=== PATIENT | male | born 1940 | race African-American/Black ===

== ENCOUNTER 2019-09-03 16:38 | Inpatient (IN) | payer MEDICARE ==
[2019-09-03] MEDS ORDERED: Ketorolac Tromethamine 30 MG/ML VIAL ONE (17:01)
--- NOTE | 2019-09-03 17:03 | RAD ---
CHEST ONE VIEW: 09/03/19 HISTORY: Shortness of breath. COMPARISON: Radiograph 2016. FINDINGS: There is abnormal opacity on the superior segment right lower lobe. Small effusions. No pneumothorax. The cardiac silhouette is mildly enlarged. Mild calcifications transverse aorta. IMPRESSION: Findings concerning for right lower lobe pneumonia. POS: HOME
[2019-09-03 17:22] LABS: Hemoglobin 8.8 g/dL (14.0-18.0); Mean Corpuscular HGB CONC 33.8 g/dL (32.0-36.0); Mean Corpuscular Hemoglobin 31.3 pg (27.0-31.0); Mean Corpuscular Volume 92.4 fL (78.0-98.0); Mean Platelet Volume 9.7 fL (7.4-10.4); Platelet Count 147 thou/uL (130-400); RBC Distribution Width 15.6 % (11.5-14.5); Red Blood Cell (RBC) Count 2.81 mill/uL (4.70-6.10); White Blood Cell (WBC) Count 19.2 thou/uL (4.8-10.8)
[2019-09-03] MEDS ORDERED: methylPREDNISolone Sod Succ/PF 125 MG/2 ML VIAL ONE (17:29)
[2019-09-03 17:42] LABS: Phosphorus 3.2 mg/dL (2.3-4.7)
[2019-09-03 17:43] LABS: Anisocytosis SLIGHT = 6-15 cells (100X) (0-5/hpf); Band 12 % (5-11); Elliptocytes SLIGHT = 2-5 cells (100X) (0-1/hpf); Lymphocytes 3 % (21-51); MDiff Complete? YES; Monocytes 3 % (0-10); Neutrophil 81 % (42-75); Ovalocytes SLIGHT = 2-5 cells (100X) (0-1/hpf); Platelet Morphology Comment Appears Adequate; Poikilocytosis SLIGHT = 6-15 cells (100X) (0-5/hpf); Polychromasia SLIGHT = 2-3 cells (100X) (0-2/hpf); Reactive Lymphocytes 1 % (0-10); Schistocytes SLIGHT = 2-5 cells (100X) (0-1/hpf)
[2019-09-03 17:45] LABS: ALT (SGPT) 11 U/L (8-55); AST (SGOT) 18 U/L (5-34); Albumin 3.8 g/dL (3.4-4.8); Alkaline Phosphatase 71 U/L (40-110); Anion Gap 17 mmol/L (10-20); BUN (Urea Nitrogen) 20 mg/dL (8.4-25.7); Calc. Creatinine Clearance 0 mL/min (70-130); Calcium 9.4 mg/dL (7.8-10.44); Carbon Dioxide 28 mmol/L (23-31); Chloride 97 mmol/L (98-107); Estimated GFR-MDRD 13; Globulin 3.5 g/dL (2.4-3.5); Glucose 94 mg/dL (83-110); Magnesium 1.7 mg/dL (1.6-2.6); Potassium 3.8 mmol/L (3.5-5.1); Protein, Total 7.3 g/dL (5.8-8.1); Sodium 138 mmol/L (136-145)
[2019-09-03] MEDS ORDERED: Acetaminophen 325 MG TAB PO PRN ×2 (19:13→20:36)
[2019-09-03] MEDS ORDERED: Sodium Chloride 0.9% 1,000 ML IV SCH (19:15)
[2019-09-03] MEDS ORDERED: hydrALAZINE 20 MG/ML VIAL SLOW IVP PRN (19:19)
[2019-09-03 19:33] LABS: CKMB 4.2 ng/mL (0-6.6)
--- NOTE | 2019-09-03 19:56 | HP ---
CHIEF COMPLAINT: Coughing and weak. HISTORY OF PRESENT ILLNESS: This is a 78-year-old male with history of hypertension, gout, dyslipidemia; end-stage renal disease, on hemodialysis Thursday, , Thursday with Dr. Webster, who presents to the emergency room in [place] with a complaint of coughing and feeling weak. History is obtained from both the patient and his . They report the coughing has been productive, onset 4 days ago, worse today and occasionally associated with posttussive emesis. The patient was at his usual dialysis session, and following it, felt weak and coughing was worse. Because of that, they presented to the emergency room in [place] and was found to have a fever. At evaluation there, he also was found to have a left lower lobe pneumonia, sepsis, and transferred to this facility for further care. The patient denies any chest pain or difficulty breathing. Denies any nausea or vomiting aside from the posttussive emesis or abdominal pain. He denies any prior history of pneumonia or any sick contacts. There are also no known precipitants or relieving factors. In the emergency room in [place] by review of documentation, the patient received Tylenol, lactated Ringer's 500 mL, cefepime 2 g at 14:50, azithromycin 500 mg IV at 14:53, vancomycin 1.5 g at 15:35 and transferred here. Here by report to the emergency room doctor, the patient was wheezing and chest was tight and he received Solu-Medrol 125 mg IV, Toradol 15 mg IV, DuoNeb, and hospitalist called for admission. ALLERGIES: NO KNOWN DRUG ALLERGIES. CURRENT MEDICATIONS: Reconciled with the bottles: 1. Hydralazine 100 mg t.i.d. 2. Renal vitamin once daily. I called [facility] in [place], as the patient and his think there are other medications that they do not remember. In discussion with the pharmacist - his only other prescription is for minoxidil 2.5 mg two tablets at bedtime, which was last filled in March. They have no other prescriptions on file. PAST MEDICAL HISTORY: 1. Hypertension. 2. Dyslipidemia. 3. End-stage renal disease, on hemodialysis Thursday, , Thursday with Dr. Webster. 4. Gout. PAST SURGICAL HISTORY: 1. Some type of ulcer history. 2. Dialysis access in his left upper extremity. 3. Hand surgery. PAST SOCIAL HISTORY: The patient uses of tobacco, a few cigarettes every other day, started at age 24, had quit for 10-year period. He denies alcohol, he is and his is his surrogate decision maker and he is a full code. FAMILY HISTORY: Negative for lung disease. REVIEW OF SYSTEMS: Negative for chest pain, nausea, abdominal pain, headache, or diarrhea. All remaining review of systems are reviewed and negative. PHYSICAL EXAMINATION: VITAL SIGNS: Blood pressure 194/100, pulse 123, respirations 15, temp 100.2. Saturation is 93% on room air. GENERAL: He is awake, alert, responsive, answering questions and not in apparent distress. Tympanic membranes are intact. Oral mucosa is pink and appears dry, the patient is some teeth. NECK: Supple, nontender. LYMPHATICS: No palpable cervical or supraclavicular lymphadenopathy. LUNGS: Decreased lung sounds at the bases. No audible wheezing or rhonchi. HEART: Normal S1 and S2. Regular rate and rhythm. No significant murmur. ABDOMEN: Soft. Present bowel sounds. Nontender. Nondistended. EXTREMITIES: No pitting edema. SKIN: No visible rashes. NEUROLOGICAL: No focal deficits. VASCULAR: 2+ dorsalis pedis pulses. PSYCH: Appears euthymic. LABORATORY DATA: Reviewed from here. CBC; 19.2, 8.8, 26.0, 147 with 81% neutrophils, 12% bands, 3% lymphocytes. Renal panel; 138, 3.8, 97, 28, 25.18, 94. LFTs are negative. Troponin 0.220. EKGs personally reviewed, normal axis, tachycardic at 123, some T-wave inversion in V5, V6. No ST elevation. Chest x-ray is personally reviewed. It shows a right lower lobe pneumonia with small effusions. Report from [place] on the chest x-ray shows left lower lobe pneumonia. Images were not reviewed. IMPRESSION: 1. Sepsis in a high-risk patient secondary to pneumonia. 2. End-stage renal disease, on hemodialysis. 3. Wheezing and chest tightness with long history of tobacco use. 4. Hypertension, uncontrolled. 5. Dyslipidemia by report. 6. Gout. 7. Tobacco use. PLAN: 1. Admission to the hospital. 2. We will continue broad-spectrum antibiotics with cefepime, azithromycin, and vancomycin that were started in [place] with renal dosing. Rather than ordering additional vancomycin, we will request Pharmacy to dose with the information that when the vancomycin was received in [place]. 3. We will continue steroids with prednisone in the morning, DuoNeb scheduled every 4 hours. 4. Nephrology consultation with Dr. Webster to arrange hemodialysis. 5. Due to the sepsis as well as the patient appears dehydrated, we will order 50 mL/hour of saline to run over the next 10 hours. 6. For indeterminant troponin, will trend and monitor on telemetry. 7. Continue the hydralazine with hold parameters. We will also order IV hydralazine for significantly elevated blood pressures. 8. Renal diet. 9. We will request sputum culture as well as perform urine strep and Legionella testing (if he produces enough urine to perform). 10. DVT prophylaxis with heparin. 11. GI prophylaxis not indicated. The patient will be written for a diet. 12. Code status is full. Surrogate decision maker is the patient's . The patient is at high risk given age comorbidities and current presentation. Reviewed the plan of care with patient and his who demonstrate understanding and agree. No questions or further needs at end of evaluation. Job ID: [id number] [facility]
[2019-09-03] MEDS ORDERED: Ondansetron ODT 4 MG TAB SL PRN (20:36)
[2019-09-03] MEDS ORDERED: Ondansetron PF 4 MG/2 ML Vial IVP PRN (20:36)
[2019-09-03 21:14] VITALS: BMI 23.1
[2019-09-03] MEDS: hydrALAZINE 25 MG TAB PO SCH (21:31)
[2019-09-03] MEDS: Heparin 5,000 UNITS/ML VIAL SC SCH (21:32)
[2019-09-03 21:36] LABS: Troponin I 0.261 ng/mL (< 0.028)
[2019-09-03 23:34] LABS: Legionella Urinary Ag Negative (Negative); Strep pneumo Urine Ag NEGATIVE (NEGATIVE)
[2019-09-04 01:14] LABS: Troponin I 0.223 ng/mL (< 0.028)
[2019-09-04 04:58] LABS: Calcium 9.1 mg/dL (7.8-10.44); Chloride 98 mmol/L (98-107); Glucose 163 mg/dL (83-110); Potassium 3.8 mmol/L (3.5-5.1); Sodium 139 mmol/L (136-145)
[2019-09-04 04:59] LABS: Anion Gap 18 mmol/L (10-20); BUN (Urea Nitrogen) 33 mg/dL (8.4-25.7); Band 10 % (5-11); Calc. Creatinine Clearance 9 mL/min (70-130); Carbon Dioxide 27 mmol/L (23-31); Elliptocytes MODERATE= 6-15 cells (100X) (0-1/hpf); Estimated GFR-MDRD 11; Hemoglobin 8.2 g/dL (14.0-18.0); Lymphocytes 4 % (21-51); MDiff Complete? YES; Mean Corpuscular HGB CONC 32.4 g/dL (32.0-36.0); Mean Corpuscular Hemoglobin 30.4 pg (27.0-31.0); Mean Platelet Volume 10.9 fL (7.4-10.4); Neutrophil 86 % (42-75); Platelet Count 130 thou/uL (130-400); Platelet Morphology Comment Appears Decreased; RBC Distribution Width 15.6 % (11.5-14.5); Red Blood Cell (RBC) Count 2.71 mill/uL (4.70-6.10); White Blood Cell (WBC) Count 17.7 thou/uL (4.8-10.8)
[2019-09-04] MEDS: hydrALAZINE 25 MG TAB PO SCH ×3 (08:10→22:41)
[2019-09-04] MEDS: Heparin 5,000 UNITS/ML VIAL SC SCH (08:10)
[2019-09-04] MEDS: predniSONE 20 MG TAB PO SCH (08:10)
[2019-09-04] MEDS ORDERED: Vancomycin HCl 750 MG in Sodium Chloride 0.9% 250 ML 250 ML IVPB SCH (09:00)
[2019-09-04] MEDS ORDERED: Vancomycin HCl 1 GM in Premix Bag 1 BAG IVPB SCH (09:00)
[2019-09-04] MEDS ORDERED: Vancomycin HCl 250 MG in Sodium Chloride 0.9% 100 ML IVPB SCH (09:00)
[2019-09-04] MEDS ORDERED: HOLD VANCOMYCIN FOR LEVEL >20 FS SCH (09:00)
[2019-09-04] MEDS ORDERED: Carvedilol 3.125 MG TAB PO SCH (09:30)
--- NOTE | 2019-09-04 10:08 | PDOC.HOSPP ---
- Subjective Encounter Date: 09/04/19 (f/u sepsis) Encounter Time: 10:06 Subjective: Pt without any complaints this morning - reports he is feeling better. Denies any chest pain or difficulty breathing. Denies any n/v/abd pain - Objective Vital Signs & Weight: Vital Signs (12 hours) Temp Pulse Resp BP BP Pulse Ox 09/04/19 08:10 105 H 09/04/19 07:50 94 L 09/04/19 07:49 98.3 F 105 H 18 195/96 H 94 L 09/04/19 07:13 91 12 96 09/04/19 03:24 97.7 F 120 H 20 189/89 H 93 L 09/04/19 02:13 112 H 12 09/04/19 00:04 114 H 195/94 H 09/03/19 23:15 96 Weight Weight 147 lb 9.6 oz I&O: 09/03/19 09/04/19 09/05/19 06:59 06:59 06:59 Intake Total 400 Output Total 180 Balance 220 Result Diagrams: 09/04/19 03:54 09/04/19 08:02 EKG Reviewed by me: Yes (a flutter 70's -120's) Hospitalist ROS - Medication Medications: Active Medications Generic Name Dose Route Start Last Admin Trade Name Freq PRN Reason Stop Dose Admin Heparin Sodium (Porcine) 5,000 units 09/03/19 21:00 09/04/19 08:10 Heparin SC 5,000 units BID CHANCE Administration Hydralazine HCl 10 mg 09/03/19 19:19 09/04/19 00:04 Apresoline SLOW IVP 10 mg Q4H PRN Administration SBP Greater Than 180 Hydralazine HCl 100 mg 09/03/19 21:00 09/04/19 08:10 Apresoline PO 100 mg TID CHANCE Administration Prednisone 40 mg 09/04/19 08:00 09/04/19 08:10 Prednisone PO 40 mg QAM-WM CHANCE Administration Sodium Chloride 10 ml 09/03/19 21:00 09/04/19 08:14 Flush - Normal Saline IVF 10 ml Q12HR CHANCE Administration - Exam General Appearance: NAD Heart: RRR, no murmur Respiratory - other findings: good air movement, decreased breath sounds at bases Gastrointestinal: soft, non-tender, non-distended, normal bowel sounds Musculoskeletal: normal tone Psychiatric: normal affect, normal behavior Hosp A/P (1) Sepsis Code(s): A41.9 - SEPSIS, UNSPECIFIED ORGANISM Status: Acute Qualifiers: Sepsis type: sepsis due to unspecified organism Severe sepsis shock status : without septic shock (2) Pneumonia Code(s): J18.9 - PNEUMONIA, UNSPECIFIED ORGANISM Status: Acute Qualifiers: Pneumonia type: due to unspecified organism Laterality: bilateral Lung location: lower lobe of lung Qualified Code(s): J18.9 - Pneumonia, unspecified organism (3) Atrial flutter Code(s): I48.92 - UNSPECIFIED ATRIAL FLUTTER Status: Acute Qualifiers: Atrial flutter type: unspecified Qualified Code(s): I48.92 - Unspecified atrial flutter (4) ESRD (end stage renal disease) on dialysis Code(s): N18.6 - END STAGE RENAL DISEASE; Z99.2 - DEPENDENCE ON RENAL DIALYSIS Status: Chronic (5) Dyslipidemia Code(s): E78.5 - HYPERLIPIDEMIA, UNSPECIFIED Status: Chronic (6) Tobacco abuse Code(s): Z72.0 - TOBACCO USE Status: Chronic (7) Hypertension Code(s): I10 - ESSENTIAL (PRIMARY) HYPERTENSION Status: Chronic Qualifiers: Hypertension type: essential hypertension Qualified Code(s): I10 - Essential (primary) hypertension (8) Anemia Code(s): D64.9 - ANEMIA, UNSPECIFIED Status: Chronic Qualifiers: Anemia type: due to chronic kidney disease - Plan Pneumonia - given dialysis patient, on broad spectrum abx with Cefepime, Azithro , Vanc - per pharmacy protocol. Continue all 3 - pt not noticing a change with nebs - change to prn - received steroids in ER - good air movement today, will continue prednisone with plan for a few days - presume cultures have been drawn in [place] - will place communication order/request for nursing staff to contact them for update A Flutter - new dx - echo - cards consult - start low dose carvedilol - troponin indeterminant - continue tele ESRD on HD with uncontrolled HTN - consult to Dr. Webster = who will also adjust bp meds. - continue pt's home hydralazine TID and carvedilol added Dyslipidemia - not on meds Tobacco abuse - adolescent counselor Anemia -chronic/stable dvt prophy - heparin gi prophy - not indicated code status full reviewed plan of care with patient/, no questions or further needs at end of eval.
[2019-09-04] MEDS ORDERED: Amlodipine 10 MG TAB PO SCH (11:15)
[2019-09-04] MEDS: Sevelamer Carbonate 800 MG TAB PO SCH ×2 (11:51→17:46)
[2019-09-04 15:01] LABS: Magnesium 2.1 mg/dL (1.6-2.6); Potassium 3.8 mmol/L (3.5-5.1)
[2019-09-04] MEDS: Cefepime 1 GM in Sodium Chloride 0.9% 100 ML IVPB SCH (15:32)
[2019-09-04] MEDS: Azithromycin 250 MG TAB PO SCH (15:32)
[2019-09-04] MEDS ORDERED: Heparin 25,000 units/D5W 500 ML IVPB SCH (16:00)
--- NOTE | 2019-09-04 16:10 | CON ---
DATE OF CONSULTATION: 09/04/2019 REASON FOR CONSULTATION: Atrial flutter. HISTORY OF PRESENT ILLNESS: Mr. Dowd is a pleasant 78-year-old gentleman, who comes to the hospital for increased shortness of breath. He has end-stage renal disease and is on hemodialysis Thursday, Thursday, Thursday. He comes in with 4 days of productive cough with posttussive emesis. He was admitted and found to have pneumonia. He was placed on telemetry and was found to have an irregular heart rate, thought to be in atrial fibrillation. Cardiology is being consulted for this. PAST MEDICAL HISTORY: 1. Hypertension. 2. Hyperlipidemia. 3. End-stage renal disease, on hemodialysis Thursday, , Thursday with Dr. Webster. 4. Gout. PAST SURGICAL HISTORY: 1. Dialysis access, left upper extremity. 2. Hand surgery. SOCIAL HISTORY: A few cigarettes every other day. No alcohol. No drugs. FAMILY HISTORY: Noncontributory. OUTPATIENT MEDICATIONS: 1. Hydralazine 100 mg t.i.d. 2. Renal vitamins a day. 3. Minoxidil 2.5 mg. ALLERGIES: NO KNOWN DRUG ALLERGIES. REVIEW OF SYSTEMS: A 12-point review of systems was done and was all negative unless stated in the history of present illness. PHYSICAL EXAMINATION: VITAL SIGNS: Temperature 98.8, pulse 107, respiratory rate 18, sat 94% on room air. Blood pressure 174/96. GENERAL: Awake, alert oriented x3 in no distress. HEENT: Normocephalic atraumatic. NECK: Supple. LUNGS: Have mild crackles at the right base. CARDIOVASCULAR: S1, S2. Irregularly irregular. HEART: Rate in the 100s to 120s. Grade 3/6 systolic murmur at the right upper sternal border. ABDOMEN: Soft. Positive bowel sounds. EXTREMITIES: No edema. SKIN: Warm and dry. LABORATORY DATA: Laboratory work was reviewed. White count of 19, down to 17, hemoglobin of 8.8, hematocrit of 26, platelet count of a 147. Chemistries with a BUN of , creatinine 6.2, GFR of 11, glucose of 163, otherwise unremarkable. Troponin was 0.22, 0.26 and 0.22. CK-MB of 4.2. The urinary antigens both strep and Legionella were negative. Chest x-ray shows right lower lobe pneumonia. EKG appears to be atrial flutter with variable AV block. ASSESSMENT AND PLAN: 1. Atrial flutter with variable atrioventricular block. 2. Right lower lobe pneumonia. 3. End-stage renal disease. 4. Hypertension. 5. Noncompliance. PLAN: 1. I spoke with Mr. Dowd about either medication, doing a defibrillator shock or just going ahead and doing an ablation for this. At this time, he is undecided. He would like to have more information. We will plan on calling Electrophysiology to see if he is even a candidate for any invasive interventions. 2. Given his age and his history of high blood pressure, his CHADS-VASc score would be 3. We would recommend full anticoagulation. We will start a heparin drip as he has end-stage renal disease. Thank you for letting us to participate in the care of the patient. Job ID: [id number]
[2019-09-04 16:22] LABS: Hemoglobin 8.1 g/dL (14.0-18.0); Platelet Count 137 thou/uL (130-400)
[2019-09-04] MEDS: Heparin 10,000 UNITS/ 10 ML VIAL SLOW IVP SCH ×2 (16:34→23:13)
[2019-09-04] MEDS: Carvedilol 3.125 MG TAB PO SCH (17:46)
[2019-09-04] MEDS: Minoxidil 2.5 MG TAB PO SCH (21:30)
[2019-09-05] MEDS ORDERED: Acetaminophen/Codeine Oral Solution PO PRN ×2 (01:03→01:05)
[2019-09-05 06:01] LABS: Anion Gap 19 mmol/L (10-20); BUN (Urea Nitrogen) 56 mg/dL (8.4-25.7); Calc. Creatinine Clearance 7 mL/min (70-130); Calcium 9.9 mg/dL (7.8-10.44); Carbon Dioxide 28 mmol/L (23-31); Chloride 94 mmol/L (98-107); Estimated GFR-MDRD 8; Glucose 91 mg/dL (83-110); Potassium 3.8 mmol/L (3.5-5.1); Sodium 137 mmol/L (136-145)
[2019-09-05 06:05] LABS: Band 1 % (5-11); Hemoglobin 8.4 g/dL (14.0-18.0); Hypochromia SLIGHT = 6-15 cells (100X) (0-5/hpf); Lymphocytes 10 % (21-51); MDiff Complete? YES; Mean Corpuscular HGB CONC 30.8 g/dL (32.0-36.0); Mean Corpuscular Volume 93.9 fL (78.0-98.0); Mean Platelet Volume 10.4 fL (7.4-10.4); Monocytes 3 % (0-10); Neutrophil 86 % (42-75); Platelet Count 157 thou/uL (130-400); Platelet Morphology Comment Appears Adequate; RBC Distribution Width 15.4 % (11.5-14.5); Red Blood Cell (RBC) Count 2.91 mill/uL (4.70-6.10); White Blood Cell (WBC) Count 19.4 thou/uL (4.8-10.8)
[2019-09-05] MEDS: Heparin 10,000 UNITS/ 10 ML VIAL SLOW IVP SCH ×2 (06:05→14:13)
[2019-09-05] MEDS ORDERED: Epoetin (ESRD) 20,000 UNITS/ML SC SCH (06:30)
--- NOTE | 2019-09-05 07:00 | PRG ---
DATE OF SERVICE: 09/05/2019 SERVICE: Renal Medicine. SUBJECTIVE: Mr. Dowd is 78-year-old black male with ESRD and was admitted for a presumed pneumonia. He has been started on IV antibiotics. In addition, he was noted to be in flutter. He was seen by Cardiology, Dr. Clark, yesterday. Recommendation for anticoagulation has been made. This morning, he voices no new complaints. He denies any chest pain or shortness of breath. OBJECTIVE: VITAL SIGNS: Blood pressure 172/95, heart rate ranging from 108 to 120, respiratory rate 20, pulse ox 93% on room air. GENERAL: Awake, supine, comfortable, not in overt distress. SKIN: Adequate turgor. HEENT: He has a slightly pale conjunctivae. Anicteric sclerae. NECK: No neck mass. No carotid bruits. No JVD. CHEST: No deformities. LUNGS: Clear breath sounds. No wheezing. No crackles. HEART: Irregular. No murmur. No gallops. No rubs. ABDOMEN: Globular, soft, nontender. No masses. EXTREMITIES: No edema. No deformities. MEDICATIONS: Medications of September 05, 2019, were reviewed. IMAGING STUDIES: Cardiac echo showed an EF of 50% to 55%-moderately enlarged right ventricle cavity. LABORATORY DATA: Laboratories of September 05, 2019; white count 19.4, hemoglobin 8.4. Sodium 137, potassium 3.8, chloride 94, carbon dioxide 28, BUN 56, creatinine 8.06, glucose 91, calcium 9.9, magnesium 2.1. Troponin I is 0.223. ASSESSMENT AND PLAN: 1. End-stage renal disease, stable. No indication for any emergent hemodialysis. We will continue Thursday, , and Thursday dialysis regimen. 2. Atrial flutter-Cardiology has seen and evaluated this patient. Possible cardioversion is being considered with this patient. He has been started on anticoagulation. 3. Anemia. Start Epogen 7500 units subcu q.week-ferrous sulfate 325 mg p.o. b.i.d. 4. Pneumonia, on IV antibiotics. Job ID: [id number]
[2019-09-05] MEDS ORDERED: EPOETIN ALFA-EPBX (ESRD) 4,000 UNIT/ML VIAL SC SCH (09:00)
[2019-09-05] MEDS: predniSONE 20 MG TAB PO SCH (09:03)
[2019-09-05] MEDS: hydrALAZINE 25 MG TAB PO SCH ×3 (09:03→20:29)
[2019-09-05] MEDS: Carvedilol 3.125 MG TAB PO SCH ×2 (09:04→20:28)
[2019-09-05] MEDS: Amlodipine 10 MG TAB PO SCH (09:04)
[2019-09-05] MEDS: Sevelamer Carbonate 800 MG TAB PO SCH ×3 (09:04→20:29)
[2019-09-05] MEDS: Ferrous Sulfate 325 MG TAB PO SCH ×2 (09:04→20:28)
--- NOTE | 2019-09-05 09:42 | CON ---
DATE OF CONSULTATION: HISTORY OF PRESENT ILLNESS: Mr. Dowd is a 78-year-old black male with ESRD, who was admitted for a cough and generalized weakness. He denied any associated fever with this, but he did have a productive cough. He was evaluated at the [facility], was found to have a pneumonia. He is now admitted here for further management. We are being consulted for management of his ESRD. He did receive dialysis yesterday. REVIEW OF SYSTEMS: Positive for cough. Denies any fever. No headache. No diplopia. Appetite is decreased. Energy level is decreased. No nausea. No vomiting. No hematochezia. No melena. No hematemesis. No abdominal pain. No diplopia. No syncopal episode. MEDICATIONS: The patient is currently on; 1. Azithromycin 500 mg q.24 hours. 2. Carvedilol 3.125 mg b.i.d. 3. Cefepime 1 g IV daily. 4. Hydralazine 100 mg p.o. t.i.d. 5. DuoNeb q.6 p.r.n. 6. Zofran p.r.n. 7. Prednisone 40 mg q.a.m. 8. Status post vancomycin. PAST MEDICAL HISTORY: 1. 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 2. Longstanding history of hypertension, status post GI bleed. PAST SURGICAL HISTORY: 1. Status post AV fistula placement. 2. Status post femoral dialysis catheter placement. 3. Status post cuffed hemodialysis catheter placement. 4. Status post exploratory laparotomy for GI bleed secondary to bleeding of peptic ulcer. 5. Status post upper GI endoscopy. SOCIAL HISTORY: The patient is , 3 children. Smoked for 40 years, 1 pack per day - currently not smoking. He is a retired trooper. Status post multiple blood transfusion. No IV drug abuse. Sedentary lifestyle. ALLERGIES: NONE. TRAUMA: None. IMMUNIZATIONS: Up-to-date. HOSPITALIZATIONS: Please see past medical history. FAMILY HISTORY: Positive family history of ESRD, one brother was on dialysis. PHYSICAL EXAMINATION: VITAL SIGNS: Blood pressure is noted at 195/96, heart rate 105, respiratory rate 18, temperature 98.3, and pulse ox 94%. GENERAL: Awake, alert, comfortable, not in overt distress. SKIN: Adequate turgor. HEENT: Slightly pale conjunctivae. Anicteric sclerae. NECK: No neck mass. No carotid bruits. No JVD. CHEST: No deformities. LUNGS: Decreased breath sounds. HEART: Normal sinus rhythm. No murmurs. No gallops. No rubs. ABDOMEN: Globular, soft, and nontender. No masses. EXTREMITIES: No edema. No deformities. NEUROLOGICAL: Moving all extremities. No tremors. No asterixis. No ataxia. LABORATORY DATA: Laboratories of September 04, 2019; white count 17.7, hemoglobin 8.2. Sodium 139, potassium 3.8, chloride 98, carbon dioxide 27, BUN 33, creatinine 6.24, and calcium 9.1. Troponin I 0.223. IMAGING DATA: On September 03, 2019; chest x-ray shows right lower lobe pneumonia. ASSESSMENT AND PLAN: 1. Pneumonia on IV antibiotics. Continue supportive care. 2. End-stage renal disease, stable. No indication for any emergent hemodialysis. He is tolerating his said dialysis regimen. I reviewed his last Kt/V and is well dialyzed with the current dialysis regimen. 3. Hyperphosphatemia. Start Renvela 800 mg one tablet t.i.d. with meals. 4. Labile hypertension. Case discussed with the nursing staff. Resume back amlodipine 10 mg tablet once a day and we will add minoxidil 5 mg tablet at bedtime. 5. Atrial flutter - Cardiology consult has been done. We agree with current management. Job ID: [id number]
--- NOTE | 2019-09-05 09:56 | PDOC.HOSPP ---
- Subjective Encounter Date: 09/05/19 Encounter Time: 12:10 Subjective: Patient feeling ok this AM. Feeling palpitations on and off. No SOB currently. Mild cough with minimal clear sputum. No other symptoms. Spoke with Dr. Madrigal already and planning on ablation. - Objective Vital Signs & Weight: Vital Signs (12 hours) Temp Pulse Resp BP Pulse Ox 09/05/19 09:04 123 H 09/05/19 09:03 123 H 09/05/19 07:32 98.2 F 123 H 18 166/99 H 94 L 09/05/19 00:55 98.8 F 120 H 20 172/95 H 93 L 09/04/19 22:41 108 H Weight Weight 147 lb 9.6 oz I&O: 09/04/19 09/05/19 09/06/19 06:59 06:59 06:59 Intake Total 400 920 Output Total 180 Balance 220 920 Result Diagrams: 09/05/19 05:34 09/05/19 05:34 Hospitalist ROS - Review of Systems Constitutional: denies: fever, chills Respiratory: reports: cough. denies: shortness of breath Cardiovascular: reports: palpitations. denies: chest pain Gastrointestinal: denies: nausea, vomiting, abdominal pain - Medication Medications: Active Medications Generic Name Dose Route Start Last Admin Trade Name Freq PRN Reason Stop Dose Admin Amlodipine Besylate 10 mg 09/05/19 09:00 09/05/19 09:04 Norvasc PO 10 mg DAILY CHANCE Administration Azithromycin 500 mg 09/04/19 15:00 09/04/19 15:32 Zithromax PO 500 mg Q24HR CHANCE Administration Carvedilol 3.125 mg 09/04/19 17:00 09/05/19 09:04 Coreg PO 3.125 mg BID-WM CHANCE Administration Ferrous Sulfate 325 mg 09/05/19 08:00 09/05/19 09:04 Feosol PO 325 mg BID-WM CHANCE Administration Heparin Sodium (Porcine) 0 units 09/04/19 16:00 09/05/19 06:05 Heparin 1,000 Units/Ml (10 Ml) SLOW IVP 2,010 unit ASDIR CHANCE Administration Protocol Hydralazine HCl 10 mg 09/03/19 19:19 09/04/19 00:04 Apresoline SLOW IVP 10 mg Q4H PRN Administration SBP Greater Than 180 Hydralazine HCl 100 mg 09/03/19 21:00 09/05/19 09:03 Apresoline PO 100 mg TID CHANCE Administration Cefepime HCl 1 gm/ Sodium 100 mls @ 200 mls/hr 09/04/19 15:00 09/04/19 15:32 Chloride IVPB 100 mls Q24HR CHANCE Administration Heparin Sodium/Dextrose 500 mls @ 0 mls/hr 09/04/19 16:00 09/04/19 16:36 Heparin 25,000 Units/D5w 500 Ml IVPB 500 mls INF CHANCE Administration Protocol Per Protocol Minoxidil 5 mg 09/04/19 21:00 09/04/19 21:30 Minoxidil PO 5 mg HS CHANCE Administration Prednisone 40 mg 09/04/19 08:00 09/05/19 09:03 Prednisone PO 40 mg QAM-WM CHANCE Administration Sevelamer Carbonate 800 mg 09/04/19 12:00 09/05/19 09:04 Renvela PO Not Given TID-WM CHANCE Sodium Chloride 10 ml 09/03/19 21:00 09/05/19 09:04 Flush - Normal Saline IVF Not Given Q12HR CHANCE - Exam General Appearance: NAD Heart: no murmur, no gallops, no rubs, irregular Heart - other findings: mild tachycardia Respiratory: CTAB, no wheezes, no rales, no ronchi Gastrointestinal: soft, non-tender, non-distended, normal bowel sounds Extremities: no edema Psychiatric: normal affect, normal behavior, A&O x 3 Hosp A/P (1) Pneumonia Code(s): J18.9 - PNEUMONIA, UNSPECIFIED ORGANISM Status: Acute Qualifiers: Pneumonia type: due to unspecified organism Laterality: bilateral Lung location: lower lobe of lung Qualified Code(s): J18.9 - Pneumonia, unspecified organism (2) Sepsis Code(s): A41.9 - SEPSIS, UNSPECIFIED ORGANISM Status: Acute Qualifiers: Sepsis type: sepsis due to unspecified organism Severe sepsis shock status : without septic shock (3) Atrial flutter Code(s): I48.92 - UNSPECIFIED ATRIAL FLUTTER Status: Acute Qualifiers: Atrial flutter type: unspecified Qualified Code(s): I48.92 - Unspecified atrial flutter (4) Dyslipidemia Code(s): E78.5 - HYPERLIPIDEMIA, UNSPECIFIED Status: Chronic (5) ESRD (end stage renal disease) on dialysis Code(s): N18.6 - END STAGE RENAL DISEASE; Z99.2 - DEPENDENCE ON RENAL DIALYSIS Status: Chronic (6) Tobacco abuse Code(s): Z72.0 - TOBACCO USE Status: Chronic (7) Anemia in chronic kidney disease Code(s): N18.9 - CHRONIC KIDNEY DISEASE, UNSPECIFIED; D63.1 - ANEMIA IN CHRONIC KIDNEY DISEASE Status: Chronic (8) Chronic diastolic heart failure Code(s): I50.32 - CHRONIC DIASTOLIC (CONGESTIVE) HEART FAILURE Status: Chronic (9) Hypertension Code(s): I10 - ESSENTIAL (PRIMARY) HYPERTENSION Status: Chronic Qualifiers: Hypertension type: essential hypertension Qualified Code(s): I10 - Essential (primary) hypertension - Plan continue antibiotics, PT/OT Pneumonia - given dialysis patient, on broad spectrum abx with Cefepime, Azithro , Vanc - per pharmacy protocol. Continue all 3 - pt not noticing a change with nebs - changed to prn - received steroids in ER - good air movement today, will continue prednisone with plan for 5 days - presume cultures have been drawn in [place] - will place communication order/request for nursing staff to contact them for update A Flutter - new dx - echo - cards consult- Eduardo saw over the weekend - low dose carvedilol - troponin indeterminant - CHADS 3- started on heparin drip - EP consult- Dr. Madrigal planning on ANTWAN and ablation ESRD on HD with uncontrolled HTN - consulted Dr. Webster. - continue pt's home hydralazine TID and carvedilol added Dyslipidemia - not on meds Tobacco abuse - behavioral school counselors Anemia -chronic/stable dvt prophy - heparin code status full
[2019-09-05] MEDS ORDERED: PROPOFOL 200 MG/20 ML VIAL ONE (13:35)
[2019-09-05] MEDS ORDERED: Lidocaine 1% PF 5 ML VIAL ONE (13:35)
--- NOTE | 2019-09-05 13:44 | CON ---
DATE OF CONSULTATION: 09/05/2019 HISTORY OF PRESENT ILLNESS: I am seeing Mr. Dowd at our [facility] as an electrophysiology it web development consultant regarding his atrial flutter. His problems are: 1. Newly found atrial flutter with 2:1 AV conduction, likely isthmus dependent typical morphology. 2. Preserved LVEF at 50% to 55%, moderate biatrial enlargement, mild MR, [id number] TR with moderate pulmonary hypertension, 70 mmHg on 2D echo on 09/04/2019. 3. End-stage renal disease, on hemodialysis Thursday, , Thursday, following with Dr. Webster. 4. Hypertension and hyperlipidemia. 5. History of gout. ALLERGIES: NONE NOTED. MEDICATIONS AT HOME: 1. Hydralazine. 2. Renal vitamins. 3. Minoxidil. SUBJECTIVE: Mr. Dowd is a 78-year-old man, who came to the hospital with increasing dyspnea and diagnosed with possible pneumonia. He received IV antibiotics and his respiratory symptoms markedly improved, but he remains in a rapid narrow complex rhythm, appears to be atrial flutter with 2:1 AV conduction. He is on IV diltiazem despite the heart rates are difficult to control this. At this point, he is reasonably comfortable at rest. He does not pass out. No chest pains. No angina. No fever, chills, or cough. No stroke-like symptoms are noted. He has no bleeding issues. Minor cough, now improving. REVIEW OF SYSTEMS: Rest of 12-point system otherwise unremarkable. PAST HISTORY: As above. PAST SURGICAL HISTORY: Significant for dialysis access shunt placement in the left upper arm, ulcer history, and hand surgery. SOCIAL HISTORY: The patient is a smoker, although a few cigarettes only a day since age 24, quit about 10 years. Denies EtOH or drug abuse. and his daughter was at the bedside. OBJECTIVE DATA: VITAL SIGNS: Blood pressure is 166/99, heart rate 123, respirations 18, and temperature 98.2 degrees Fahrenheit. GENERAL: This is an alert and oriented man, in no apparent distress. NECK: Supple. Jugular veins not distended. CHEST: Coarse without crackles. HEART: Sounds are regular to rate and rhythm. No murmur or gallop. Left upper arm with functional AV fistula with appropriate murmur audible. ABDOMEN: Benign. Bowel sounds are positive. EXTREMITIES: Lower extremities without edema, clubbing, or cyanosis. Pulses are adequate. NEUROLOGIC: The patient is nonfocal. MUSCULOSKELETAL: Without joint swelling or deformity. SKIN: Without rash. DATABASE: EKG is reviewed, revealing an atrial flutter likely typical isthmus dependent in morphology, mostly 2:1, occasionally 3:1 AV conduction. LABORATORY DATA: White cell count is 19.4, hemoglobin 8.4, platelet count is 157. PTT is 42. Sodium 137, potassium 3.8, BUN is 56, creatinine is 8.06. Troponin levels are 0.2, 0.26, 0.22 consecutively. ASSESSMENT AND PLAN: Mr. Dowd is a 78-year-old man with history of end-stage renal disease, preserved left ventricular ejection fraction, who was found to have sustained atrial flutter in the setting of pneumonia, atrial flutter with rapid AV conduction remained. He is on IV heparin since admission. We discussed the mechanism of atrial fibrillation and flutter. Detailed the differences in 2 and potential treatment options were also discussed with him, his , and his daughter, who is in medical field. They understand the treatment options, which should include continued rate control, though so far not successful. Antiarrhythmic agents, ANTWAN-guided cardioversion versus ablation. Eventually, we agreed to ablation with further discussion with the family. The risks and benefits of the procedure including esophageal perforation with ANTWAN, bleeding at the groin site or the pericardial space with the ablation, recurrence stroke and risk is discussed. They understand and considering to proceed with the procedure. I will keep him n.p.o. for now. Continue heparin. We will follow with you. Thank you again for allowing me to participate in the care of this patient. Job ID: [id number] MTDD
[2019-09-05] MEDS: Azithromycin 250 MG TAB PO SCH (15:41)
[2019-09-05] MEDS: Cefepime 1 GM in Sodium Chloride 0.9% 100 ML IVPB SCH (15:41)
[2019-09-05] MEDS ORDERED: Lidocaine 1% (PF) 30 ML VIAL ONE (17:04)
[2019-09-05] MEDS ORDERED: Heparin 10,000 UNITS/1 ML VIAL ONE (17:04)
[2019-09-05] MEDS ORDERED: Heparin (Artline) 500 ML ONE (17:04)
[2019-09-05] MEDS ORDERED: Fentanyl 100 MCG/2 ML VIAL ONE (17:34)
[2019-09-05] MEDS ORDERED: Propofol 1,000 MG/100 ML VIAL IV ONE (17:35)
[2019-09-05] MEDS ORDERED: DOPamine 400 MG/D5W 250 ML 250 ML ONE (18:31)
[2019-09-05] MEDS ORDERED: Ondansetron HCl/PF 4 MG/2 ML Vial IVP PRN (19:01)
[2019-09-05] MEDS: Minoxidil 2.5 MG TAB PO SCH (20:30)
--- NOTE | 2019-09-06 01:29 | OP ---
DATE OF PROCEDURE: 09/05/2019 PROCEDURES PERFORMED: Electrophysiology study and radiofrequency ablation. REASON FOR PROCEDURE: Mr. Dowd is a 78-year-old man with history of end-stage renal disease. He is presenting with upper respiratory tract infection, also malaise, fatigue, and marked sustained tachycardia, which appears to be isthmus dependent atrial flutter. ANTWAN prior to the procedure demonstrates no intracardiac clots. DESCRIPTION OF PROCEDURE: The patient received propofol and deep sedation by Anesthesia specialist. After adequate level of sedation achieved, the right femoral venous area was prepped, draped, anesthetized using subcutaneous lidocaine and under ultrasound guidance, two femoral vein sheaths were inserted via Seldinger technique. Through these, a ThermoCool SFST catheter advanced to the right atrium. 3D map of the right atrium, His bundle, CS positions were obtained. Also, a decapolar catheter was advanced to the right atrium and right ventricle. His bundle and CS position pace mapping recording was performed in each location including pacing the left atrium via the CS. The following findings were noted: Baseline rhythm was an atrial flutter with typical isthmus-dependent morphology. The CS activation was proximal to distal. Cycle length was 240 milliseconds. Overdrive pacing at the cavotricuspid isthmus entering the tachycardia and the post-pacing interval was equal to the baseline tachycardia cycle length of about 240 milliseconds. This proved the cavotricuspid isthmus dependent atrial flutter, therefore, we proceeded with a cavotricuspid isthmus ablation. Total of 7 lesions delivered over duration of 6 minutes and 36 seconds. 35 to 40 denson of energy was used. During the isthmus ablation, the atrial flutter terminated and additional flutter was noted, also deemed to be isthmus dependent with cycle length of about 320 milliseconds. Further ablation isthmus eliminated this flutter and inducibility as well. Following that, basic EP study was performed. Sinus node recovery time was 1048, corrected about 310 milliseconds. AV Wenckebach cycle length of 440 milliseconds. The HV interval was 49 milliseconds pre and post ablation. No re-inducible atrial flutter is seen. Dopamine was administered at this point. Isthmus dependency was rechecked and no evidence of inducible atrial flutter or fibrillation was seen at the end of the case. CONCLUSION: 1. Typical isthmus-dependent atrial flutter at baseline. 2. Cavotricuspid isthmus ablation terminated the atrial flutter and eliminated re-inducibility. 3. Normal AV renee function and His-Purkinje function noted. 4. Normal sinus renee function. PLAN: Monitor for recurrent atrial arrhythmias. Consider oral anticoagulation for a short period of time unless further atrial fibrillation or flutter is seen. Job ID: [id number] [facility]
[2019-09-06 04:54] LABS: #Basophils 0.1 thou/uL (0.0-0.2); #Lymphocytes 1.5 thou/uL (1.20-3.40); #Monocytes 0.4 thou/uL (0.11-0.59); #Neutrophils 12.4 thou/uL (1.40-6.50); %Basophils 0.6 % (0.0-1.0); %Eosinophils 0.1 % (0.0-10.0); %Lymphocytes 10.2 % (21.0-51.0); %Monocytes 3.1 % (0.0-10.0); %Neutrophils 86.1 % (42.0-75.0); Hemoglobin 7.8 g/dL (14.0-18.0); Mean Corpuscular HGB CONC 33.1 g/dL (32.0-36.0); Mean Corpuscular Hemoglobin 30.9 pg (27.0-31.0); Mean Corpuscular Volume 93.3 fL (78.0-98.0); Mean Platelet Volume 9.7 fL (7.4-10.4); Platelet Count 189 thou/uL (130-400); RBC Distribution Width 15.4 % (11.5-14.5); Red Blood Cell (RBC) Count 2.52 mill/uL (4.70-6.10); White Blood Cell (WBC) Count 14.4 thou/uL (4.8-10.8)
[2019-09-06 05:09] LABS: Anion Gap 21 mmol/L (10-20); BUN (Urea Nitrogen) 76 mg/dL (8.4-25.7); Calc. Creatinine Clearance 6 mL/min (70-130); Calcium 9.4 mg/dL (7.8-10.44); Carbon Dioxide 25 mmol/L (23-31); Chloride 94 mmol/L (98-107); Estimated GFR-MDRD 6; Glucose 109 mg/dL (83-110); Potassium 4.2 mmol/L (3.5-5.1); Sodium 136 mmol/L (136-145)
--- NOTE | 2019-09-06 08:12 | PRG ---
DATE OF SERVICE: 09/06/2019 SUBJECTIVE: Mr. Dowd is a 78-year-old black male with ESRD, currently on maintenance hemodialysis. He was admitted for pneumonia. In addition, he was found to be in atrial flutter. Dr. Madrigal, the stationary engineer refrigeration has evaluated this patient. He underwent a cardiac ablation. He did well. No other complaints today. OBJECTIVE: VITAL SIGNS: Blood pressure is 126/55, heart rate 98, respiratory rate 18, temperature 99.1, and pulse ox 92%. GENERAL: Noted to be awake, alert, comfortable, not in overt distress. SKIN: Adequate turgor. HEENT: He has pinkish conjunctivae. Anicteric sclerae. NECK: No neck mass. No carotid bruits. No JVD. CHEST: No deformities. LUNGS: Clear breath sounds. HEART: Normal sinus rhythm. No murmur. No gallops. No rubs. ABDOMEN: Globular, soft, nontender, no masses. EXTREMITIES: No edema, no deformities. MEDICATIONS: Medications of September 06, 2019, was reviewed. LABORATORY DATA: Laboratories of September 06, 2019, white count 14.4, hemoglobin 7.8; sodium 136, potassium 4.2, chloride 94, carbon dioxide 25, BUN 76, creatinine 9.53, glucose 109, calcium 9.4. ASSESSMENT AND PLAN: 1. Endstage renal disease, stable. We will continue current hemodialysis regimen. The patient has been scheduled for dialysis today. Fluid removal only as tolerated. 2. Labile hypertension, much improved with the addition of minoxidil. Continue current BP medications. 3. Atrial flutter-status post cardiac ablation, doing well. Cardiology is following. 4. Anemia. Continuing weekly Epogen of 7500 units subcu q.week. In addition, he is on ferrous sulfate 325 mg p.o. b.i.d. We will recheck basic metabolic profile, CBC in a.m. Job ID: [id number]
--- NOTE | 2019-09-06 08:21 | PDOC.HOSPP ---
- Subjective Encounter Date: 09/06/19 Encounter Time: 11:00 Subjective: Patient without complaints. Seen in dialysis. - Objective Vital Signs & Weight: Vital Signs (12 hours) Temp Pulse Resp BP BP Pulse Ox 09/06/19 07:56 98.5 F 95 18 161/67 H 94 L 09/06/19 04:00 99.1 F 98 18 126/55 L 92 L 09/06/19 00:00 88 18 116/55 L 09/05/19 20:29 90 176/84 H Weight Weight 147 lb 4.8 oz I&O: 09/05/19 09/06/19 09/07/19 06:59 06:59 06:59 Intake Total 920 640 Output Total 300 Balance 920 340 Result Diagrams: 09/06/19 16:11 09/06/19 04:17 Hospitalist ROS - Review of Systems Constitutional: denies: fever, chills Respiratory: denies: cough, shortness of breath Cardiovascular: denies: chest pain, palpitations, orthopnea Gastrointestinal: denies: nausea, vomiting, abdominal pain - Medication Medications: Active Medications Generic Name Dose Route Start Last Admin Trade Name Freq PRN Reason Stop Dose Admin Amlodipine Besylate 10 mg 09/05/19 09:00 09/05/19 09:04 Norvasc PO 10 mg DAILY CHANCE Administration Azithromycin 500 mg 09/04/19 15:00 09/05/19 15:41 Zithromax PO 500 mg Q24HR CHANCE Administration Carvedilol 3.125 mg 09/04/19 17:00 09/05/19 20:28 Coreg PO 3.125 mg BID-WM CHANCE Administration Epoetin Carlos-epbx 7,500 unit 09/05/19 09:00 09/05/19 15:42 Retacrit SC 7,500 unit Q7DAYS CHANCE Administration Ferrous Sulfate 325 mg 09/05/19 08:00 09/05/19 20:28 Feosol PO Not Given BID-WM CHANCE Hydralazine HCl 10 mg 09/03/19 19:19 09/04/19 00:04 Apresoline SLOW IVP 10 mg Q4H PRN Administration SBP Greater Than 180 Hydralazine HCl 100 mg 09/03/19 21:00 09/05/19 20:29 Apresoline PO 100 mg TID CHANCE Administration Cefepime HCl 1 gm/ Sodium 100 mls @ 200 mls/hr 09/04/19 15:00 09/05/19 15:41 Chloride IVPB 100 mls Q24HR CHANCE Administration Minoxidil 5 mg 09/04/19 21:00 09/05/19 20:30 Minoxidil PO 5 mg HS CHANCE Administration Prednisone 40 mg 09/04/19 08:00 09/05/19 09:03 Prednisone PO 40 mg QAM-WM CHANCE Administration Sevelamer Carbonate 800 mg 09/04/19 12:00 09/05/19 20:29 Renvela PO Not Given TID-WM CHANCE Sodium Chloride 10 ml 09/03/19 21:00 09/05/19 20:30 Flush - Normal Saline IVF 10 ml Q12HR CHANCE Administration - Exam General Appearance: NAD, awake alert ENT: moist mucosa Heart: RRR, no murmur, no gallops, no rubs. negative: irregular Respiratory: CTAB, no wheezes, no rales, no ronchi Gastrointestinal: soft, non-tender, non-distended, normal bowel sounds Psychiatric: normal affect, normal behavior, A&O x 3 Hosp A/P (1) Pneumonia Code(s): J18.9 - PNEUMONIA, UNSPECIFIED ORGANISM Status: Acute Qualifiers: Pneumonia type: due to unspecified organism Laterality: bilateral Lung location: lower lobe of lung Qualified Code(s): J18.9 - Pneumonia, unspecified organism (2) Sepsis Code(s): A41.9 - SEPSIS, UNSPECIFIED ORGANISM Status: Acute Qualifiers: Sepsis type: sepsis due to unspecified organism Severe sepsis shock status : without septic shock (3) Atrial flutter Code(s): I48.92 - UNSPECIFIED ATRIAL FLUTTER Status: Resolved Qualifiers: Atrial flutter type: unspecified Qualified Code(s): I48.92 - Unspecified atrial flutter (4) Dyslipidemia Code(s): E78.5 - HYPERLIPIDEMIA, UNSPECIFIED Status: Chronic (5) ESRD (end stage renal disease) on dialysis Code(s): N18.6 - END STAGE RENAL DISEASE; Z99.2 - DEPENDENCE ON RENAL DIALYSIS Status: Chronic (6) Tobacco abuse Code(s): Z72.0 - TOBACCO USE Status: Chronic (7) Anemia in chronic kidney disease Code(s): N18.9 - CHRONIC KIDNEY DISEASE, UNSPECIFIED; D63.1 - ANEMIA IN CHRONIC KIDNEY DISEASE Status: Chronic (8) Chronic diastolic heart failure Code(s): I50.32 - CHRONIC DIASTOLIC (CONGESTIVE) HEART FAILURE Status: Chronic (9) Hypertension Code(s): I10 - ESSENTIAL (PRIMARY) HYPERTENSION Status: Chronic Qualifiers: Hypertension type: essential hypertension Qualified Code(s): I10 - Essential (primary) hypertension - Plan Pneumonia - given dialysis patient, on broad spectrum abx with Cefepime, Azithro , Vanc - per pharmacy protocol. Continue all 3 - pt not noticing a change with nebs - changed to prn - received steroids in ER - good air movement today, will continue prednisone with plan for 5 days - presume cultures have been drawn in [facility] - will place communication order/request for nursing staff to contact them for update A Flutter - resolved with ablation - echo - CHADS 3- started on heparin drip, will need short term anticoagulation - Coumadin for 1 month until seen by Dr. Madrigal in clinic - ablation with resolution on 09/05/2019 - starting Coumadin, have case management arrange outpatient f/u with PCP or Coumadin clinic ESRD on HD with uncontrolled HTN - consulted Dr. Webster. - continue pt's home hydralazine TID, better on carvedilol and minoxidil Dyslipidemia - not on meds Tobacco abuse - certified alcohol and drug counselor Anemia -chronic/stable dvt prophy - heparin code status full
[2019-09-06 09:04] LABS: Vancomycin, Random 16.1 ug/mL (See Comment)
[2019-09-06] MEDS: Ferrous Sulfate 325 MG TAB PO SCH ×2 (09:04→16:05)
[2019-09-06] MEDS: hydrALAZINE 25 MG TAB PO SCH ×3 (09:04→21:39)
[2019-09-06] MEDS: Amlodipine 10 MG TAB PO SCH (09:05)
[2019-09-06] MEDS: Carvedilol 3.125 MG TAB PO SCH (09:05)
[2019-09-06] MEDS: Sevelamer Carbonate 800 MG TAB PO SCH ×3 (09:05→18:43)
[2019-09-06] MEDS: predniSONE 20 MG TAB PO SCH (09:05)
--- NOTE | 2019-09-06 14:03 | PDOC.EP ---
- Subjective Date: 09/06/19 Time: 08:00 Interval History: follow up for atrial flutter after CTI flutter ablation. Feeling much better today. No cardiac concern or complaints. NO bleeding or pain at groin sites. - Review of Systems Constitutional: denies: chills, fever, malaise, sweats, weakness, other Respiratory: denies: cough, dry, hemoptysis, pleuritic pain, shortness of breath , SOB with excertion, sputum, wheezing, other Cardiology: denies: chest pain, edema, heart racing, light headedness, paroxysmal noc. dyspnea, orthopnea, palpitations, passing out, pleuritic pain, pressure, swelling, other Musculoskeletal: denies: shoulder pain, leg pain, foot pain - Objective Allergies/Adverse Reactions: Allergies Allergy/AdvReac Type Severity Reaction Status Date / Time No Known Allergies Allergy Verified 01/18/15 21:45 Current Medications Acetaminophen (Tylenol) 650 mg PO Q6H PRN PRN Reason: Headache/Fever/Mild Pain (1-3) Acetaminophen/Codeine Phosphate (Tylenol/Codeine Elixir) 2.5 ml PO Q6H PRN PRN Reason: Cough Albuterol/Ipratropium (Duoneb) 3 ml NEB [id number] PRN PRN Reason: Dyspnea/Wheezing/SOB Amlodipine Besylate (Norvasc) 10 mg PO DAILY [facility] Last Admin: 09/06/19 09:05 Dose: 10 mg Azithromycin (Zithromax) 500 mg PO Q24HR [facility] Last Admin: 09/05/19 15:41 Dose: 500 mg [facility] ([facility]g) [facility] Last Admin: 09/06/19 09:05 Dose: 3.125 mg Epoetin Carlos-epbx (Retacrit) 7,500 unit SC Q7DAYS [facility] Last Admin: 09/05/19 15:42 Dose: 7,500 unit Ferrous Sulfate (Feosol) [facility] Last Admin: 09/06/19 09:04 Dose: 325 mg Hydralazine HCl (Apresoline) 10 mg SLOW IVP Q4H PRN PRN Reason: SBP Greater Than 180 Last Admin: 09/04/19 00:04 Dose: 10 mg Hydralazine HCl (Apresoline) 100 mg PO TID [facility] Last Admin: 09/06/19 09:04 Dose: 100 mg Cefepime HCl 1 gm/ Sodium (Chloride) 100 mls @ 200 mls/hr IVPB Q24HR [facility] Last Admin: 09/05/19 15:41 Dose: 100 mls Vancomycin HCl 1 gm/ Device 200 mls @ 200 mls/hr IVPB [facility] Vancomycin HCl 750 mg/ Sodium (Chloride) 250 mls @ 250 mls/hr IVPB [facility] Vancomycin HCl 500 mg/ Sodium (Chloride) 100 mls @ 100 mls/hr IVPB [facility] Vancomycin HCl 250 mg/ Sodium (Chloride) 100 mls @ 100 mls/hr IVPB [facility] Minoxidil (Minoxidil) 5 mg PO [facility] Last Admin: 09/05/19 20:30 Dose: 5 mg Miscellaneous Medication (Pharmacy To Dose) 1 each IVPB PRN PRN PRN Reason: Pharmacy to dose Hold Vancomycin For (Level >20) 0 each FS .AT [facility] Prednisone (Prednisone) 40 mg PO QAM-[facility] Last Admin: 09/06/19 09:05 Dose: 40 mg Sevelamer Carbonate (Renvela) 800 mg PO TID-[facility] Last Admin: 09/06/19 09:05 Dose: 800 mg Sodium Chloride (Flush - Normal Saline) 10 ml IVF Q12HR [facility] Last Admin: 09/06/19 09:03 Dose: 10 ml Sodium Chloride (Flush - Normal Saline) 10 ml IVF PRN PRN PRN Reason: Saline Flush Vital Signs & Weight: Vital Signs Temp Pulse Pulse Pulse Resp BP BP 09/06/19 09:53 81 86 121/55 L 09/06/19 09:05 95 161/67 H 09/06/19 09:04 95 161/67 H 09/06/19 08:00 09/06/19 07:56 98.5 F 95 18 09/06/19 04:00 99.1 F 98 18 BP BP Pulse Ox 09/06/19 09:53 143/62 H 09/06/19 09:05 09/06/19 09:04 09/06/19 08:00 94 L 09/06/19 07:56 161/67 H 94 L 09/06/19 04:00 126/55 L 92 L Weight 147 lb 4.8 oz I/O: I/O 09/05/19 09/06/19 09/07/19 06:59 06:59 06:59 Intake Total 920 640 120 Output Total 300 2300 Balance 920 340 -9550 - Quality Measures Condition: Atrial Fibrillation/Flutter (hx or current) CV meds: Warfarin: Yes - Physical Exam General: alert & oriented x3, appears well, no apparent distress, speech clear, affect appropriate HEENT: mucus membranes moist, normocephaly Neck: supple neck, midline trachea, no JVD/HJR, no masses, no bruit, no lymphadenopathy, no thromegaly Cardiology: regular rate and rhythm, no murmur, regular rate, PMI nondisplaced Lungs: clear to auscultation, normal breath sounds, no wheeze, rales, rhonchi Neurology: cranial nerve 2-12 intact, sensory function intact, no lateralizing findings Skin: groin sites stable. negative: bruising, drainage, hematoma - Labs Result Diagrams: 09/06/19 16:11 09/06/19 04:17 - EKG Interpretation EKG shows: Sinus rhythm - Assessment/Plan Assessment/Plan: 1. Typical atrial flutter -s/p ANTWAN then EPS with CTI ablation. normal AV node and SA node function. - SR with 1st degree AV block. No recurrent atrial arrhythmias thus far 2. ESRD 3. URI PACs are seen on tele. No atrial fibrillation is seen on tele or during EPS study but I would recommend continued OAC and addition of low dose beta janette therapy for PAT runs/PACs. Warfarin OK to resume tonight post ablation.
[2019-09-06] MEDS: Cefepime 1 GM in Sodium Chloride 0.9% 100 ML IVPB SCH (16:01)
[2019-09-06] MEDS: Azithromycin 250 MG TAB PO SCH (16:01)
[2019-09-06] MEDS: Carvedilol 6.25 MG TAB PO SCH (16:06)
[2019-09-06 16:23] LABS: Hemoglobin 8.7 g/dL (14.0-18.0); Platelet Count 191 thou/uL (130-400)
--- NOTE | 2019-09-06 17:59 | ECHO ---
DATE OF SERVICE: 09/05/19 REFERRING PHYSICIAN: Dr. Blue Clark REASON FOR PROCEDURE: The patient is a 78-year-old man with history of COPD, pulmonary hypertension and end-stage renal dis ease who presents with pneumonia that has not resolved but also sustained atrial flutter noted at 220 conduction, difficult rate control. Here for a ANTWAN prior to planned ablation procedure to rule out i ntracardiac clots. PROCEDURE: The patient received propofol by Anesthesia specialist. After adequate level of sedation achieved, a standard transesophageal echocardiogram probe was passed into the esophagus without diff iculty. Patient tolerated the procedure well, no complications noted. RESULTS: Left atrium is moderately enlarged about 4.9 cm in horizontal diameter. The left atrial appendage we ll visualized contains no clots. The mitral valve has only trace regurgitation. Four out of four pulm onary veins were seen. The left ventricular systolic function is preserved. Moderate to severe left ventricular hypertrophy is noted more prominent on the anterolateral and apex of the left ventricle. The right sided chambers are dilated. Moderate tricuspid regurgitation is seen. The interatrial septu m and septum is free of defect. The pulmonary valve appears to be normal. The aortic valve is sclerotic but not stenotic. No regurgitation is seen. The pericardial space is without effusion. The visualized portion of ascending and descending aorta without aneurysm, dissection and only modera te adherent atheroma is seen. CONCLUSION: 1. Normal LV systolic function. 2. Severe left ventricular hypertrophy, more prominent in the apex. 3. Right more than left biatrial enlargement. 4. No evidence of intracardiac clots. 5. Moderate tricuspid regurgitation. No other significant valvular abnormalities. PLAN: Proceed with the ablation.
[2019-09-06 19:12] LABS: INR-International Normal Ratio 1.1; Prothrombin Time 14.3 SEC (12.0-14.7)
[2019-09-06] MEDS ORDERED: Warfarin Sodium 5 MG TAB PO SCH (19:45)
[2019-09-06] MEDS: Minoxidil 2.5 MG TAB PO SCH (21:40)
[2019-09-06] MEDS: Warfarin Sodium 5 MG TAB PO SCH (21:41)
[2019-09-07 04:47] LABS: INR-International Normal Ratio 1.2; Prothrombin Time 14.7 SEC (12.0-14.7)
[2019-09-07 05:06] LABS: Anion Gap 16 mmol/L (10-20); BUN (Urea Nitrogen) 38 mg/dL (8.4-25.7); Calc. Creatinine Clearance 9 mL/min (70-130); Calcium 9.2 mg/dL (7.8-10.44); Carbon Dioxide 31 mmol/L (23-31); Chloride 95 mmol/L (98-107); Estimated GFR-MDRD 11; Glucose 96 mg/dL (83-110); Potassium 3.3 mmol/L (3.5-5.1); Sodium 139 mmol/L (136-145)
[2019-09-07 05:14] LABS: Elliptocytes SLIGHT = 2-5 cells (100X) (0-1/hpf); Hemoglobin 8.2 g/dL (14.0-18.0); Hypochromia SLIGHT = 6-15 cells (100X) (0-5/hpf); Lymphocytes 17 % (21-51); MDiff Complete? YES; Mean Corpuscular Hemoglobin 30.5 pg (27.0-31.0); Mean Corpuscular Volume 92.5 fL (78.0-98.0); Mean Platelet Volume 9.7 fL (7.4-10.4); Monocytes 7 % (0-10); Neutrophil 76 % (42-75); Platelet Count 181 thou/uL (130-400); Platelet Morphology Comment Appears Adequate; RBC Distribution Width 15.2 % (11.5-14.5); White Blood Cell (WBC) Count 11.3 thou/uL (4.8-10.8)
[2019-09-07] MEDS: hydrALAZINE 25 MG TAB PO SCH ×3 (08:19→21:40)
[2019-09-07] MEDS: Amlodipine 10 MG TAB PO SCH (08:19)
[2019-09-07] MEDS: predniSONE 20 MG TAB PO SCH (08:19)
[2019-09-07] MEDS: Ferrous Sulfate 325 MG TAB PO SCH ×2 (08:19→16:05)
[2019-09-07] MEDS: Sevelamer Carbonate 800 MG TAB PO SCH ×3 (08:19→16:05)
[2019-09-07] MEDS: Carvedilol 6.25 MG TAB PO SCH ×3 (08:19→21:41)
--- NOTE | 2019-09-07 08:49 | PRG ---
DATE OF SERVICE: 09/07/2019 SUBJECTIVE: Mr. Dowd is a 78-year-old black male with ESRD and was admitted for pneumonia. He also was found to have atrial flutter and he underwent a cardiac ablation. He is doing well. Denies any new complaints. OBJECTIVE: VITAL SIGNS: Blood pressure is noted at 146/67, heart rate 88, respiratory rate 18, temperature 99.2, and pulse oximetry 95%. GENERAL: Noted to be awake, alert, comfortable, not in distress. SKIN: Adequate turgor. HEENT: He has a slightly pale conjunctivae. Anicteric sclerae. NECK: No neck mass. No carotid bruits. No JVD. CHEST: No deformities. LUNGS: Clear breath sounds. No wheezing. No crackles. HEART: Normal sinus rhythm. No murmur. No gallops. No rubs. ABDOMEN: Globular, soft, nontender. No masses. EXTREMITIES: No edema, no deformities. MEDICATIONS: Medications of September 07, 2019, reviewed. LABORATORY DATA: Laboratories of September 07, 2019, white count 11.3, hemoglobin 8.2. Sodium 139, potassium 3.3, chloride 95, carbon dioxide 31, BUN 38, creatinine 6.26, calcium 9.2. ASSESSMENT AND PLAN: 1. Mild hypokalemia. P.r.n. potassium replacement. 2. End-stage renal disease, stable, tolerating current hemodialysis regimen. Fluid removal was tolerated yesterday. 3. Anemia. Continue weekly Epogen. Tolerating current regimen. 4. Atrial flutter-currently stable. Status post cardiac ablation. Cardiology is following. 5. Pneumonia. Currently, on IV antibiotics, doing well. 6. Hypertension, continue current BP medications. Recently minoxidil has been added with improvement with BP control. Job ID: [id number]
[2019-09-07] MEDS ORDERED: Ondansetron PF 4 MG/2 ML Vial SLOW IVP PRN (09:49)
[2019-09-07] MEDS ORDERED: Ondansetron PF 4 MG/2 ML Vial SLOW IVP SCH (10:00)
--- NOTE | 2019-09-07 14:54 | PDOC.EP ---
- Subjective Date: 09/07/19 Time: 14:53 Interval History: follow up for atrial flutter after CTI flutter ablation. Feeling much better today. + palpitations. - chest pain, dizziness, passing out. NO bleeding or pain at groin sites. - Review of Systems Constitutional: denies: chills, fever, malaise, sweats, weakness, other Respiratory: denies: cough, dry, hemoptysis, pleuritic pain, shortness of breath , SOB with excertion, sputum, wheezing, other Cardiology: reports: palpitations. denies: chest pain, edema, heart racing, light headedness, passing out - Objective Allergies/Adverse Reactions: Allergies Allergy/AdvReac Type Severity Reaction Status Date / Time No Known Allergies Allergy Verified 01/18/15 21:45 Current Medications Acetaminophen (Tylenol) 650 mg PO Q6H PRN PRN Reason: Headache/Fever/Mild Pain (1-3) Acetaminophen/Codeine Phosphate (Tylenol/Codeine Elixir) 2.5 ml PO Q6H PRN PRN Reason: Cough Albuterol/Ipratropium (Duoneb) 3 ml NEB [id number] PRN PRN Reason: Dyspnea/Wheezing/SOB Amlodipine Besylate (Norvasc) 10 mg PO DAILY [facility] Last Admin: 09/07/19 08:19 Dose: 10 mg Azithromycin (Zithromax) 500 mg PO Q24HR [facility] Last Admin: 09/06/19 16:01 Dose: 500 mg Carvedilol (Coreg) 6.25 mg PO TID [facility] Epoetin Carlos-epbx (Retacrit) 7,500 unit SC Q7DAYS [facility] Last Admin: 09/05/19 15:42 Dose: 7,500 unit Ferrous Sulfate (Feosol) 325 mg PO BID-[facility] Last Admin: 09/07/19 08:19 Dose: 325 mg Hydralazine HCl (Apresoline) 10 mg SLOW IVP Q4H PRN PRN Reason: SBP Greater Than 180 Last Admin: 09/04/19 00:04 Dose: 10 mg Hydralazine HCl (Apresoline) 100 mg PO TID [facility] Last Admin: 09/07/19 08:19 Dose: 100 mg Cefepime HCl 1 gm/ Sodium (Chloride) 100 mls @ 200 mls/hr IVPB Q24HR [facility] Last Admin: 09/06/19 16:01 Dose: 100 mls Vancomycin HCl 1 gm/ Device 200 mls @ 200 mls/hr IVPB WILLCALL [facility] Vancomycin HCl 750 mg/ Sodium (Chloride) 250 mls @ 250 mls/hr IVPB WILLCALL [facility] Vancomycin HCl 500 mg/ Sodium (Chloride) 100 mls @ 100 mls/hr IVPB WILLCALL [facility] Vancomycin HCl 250 mg/ Sodium (Chloride) 100 mls @ 100 mls/hr IVPB WILLCALL [facility] Last Admin: 09/06/19 13:00 Dose: 100 mls Minoxidil (Minoxidil) 5 mg PO HS [facility] Last Admin: 09/06/19 21:40 Dose: 5 mg Miscellaneous Medication (Pharmacy To Dose) 1 each IVPB PRN PRN PRN Reason: Pharmacy to dose Miscellaneous Medication (Pharmacy To Dose) 1 each PO PRN PRN PRN Reason: Pharmacy to dose Hold Vancomycin For (Level >20) 0 each FS .AT DIALYSIS [facility] Ondansetron HCl (Zofran) 4 mg SLOW IVP Q6H PRN PRN Reason: Nausea/Vomiting Prednisone (Prednisone) 40 mg PO QAM-[facility] Last Admin: 09/07/19 08:19 Dose: 40 mg Sevelamer Carbonate (Renvela) 800 mg PO TID-[facility] Last Admin: 09/07/19 13:15 Dose: 800 mg Sodium Chloride (Flush - Normal Saline) 10 ml IVF Q12HR [facility] Last Admin: 09/07/19 08:20 Dose: 10 ml Sodium Chloride (Flush - Normal Saline) 10 ml IVF PRN PRN PRN Reason: Saline Flush Last Admin: 09/06/19 16:06 Dose: 10 ml Warfarin Sodium (Coumadin) 5 mg PO 1700 [facility] Vital Signs & Weight: Vital Signs Temp Pulse Resp BP Pulse Ox 09/07/19 11:41 97.5 F L 94 18 136/66 92 L 09/07/19 07:08 99.2 F 88 18 146/67 H 95 09/07/19 04:00 98.5 F 90 18 145/65 H 93 L Weight 147 lb 4.8 oz I/O: I/O 09/06/19 09/07/19 09/08/19 06:59 06:59 06:59 Intake Total 640 720 Output Total 300 2300 Balance 340 -1580 - Quality Measures Condition: Atrial Fibrillation/Flutter (hx or current) CV meds: Warfarin: Yes - Physical Exam General: alert & oriented x3, appears well, no apparent distress, speech clear, affect appropriate HEENT: mucus membranes moist Neck: supple neck, midline trachea, no JVD/HJR, no lymphadenopathy Cardiology: regular rate and rhythm, PMI nondisplaced Lungs: clear to auscultation, normal breath sounds, no wheeze, rales, rhonchi Neurology: cranial nerve 2-12 intact, grossly intact, no lateralizing findings - Labs Result Diagrams: 09/07/19 04:24 09/07/19 04:24 - EKG Interpretation EKG Method: Telemetry (SR with MAT and PAT runs up to 160bpm) - Assessment/Plan Assessment/Plan: 1. Typical atrial flutter -s/p ANTWAN then EPS with CTI ablation. normal AV node and SA node function. - SR with 1st degree AV block. No recurrent atrial arrhythmias thus far 2. ESRD 3. URI 4. HTN 5. Anticoagulation with warfarin - IRN 1.2, per hospitalist team PACs are seen on tele. No atrial fibrillation is seen on tele or during EPS study but I would recommend continued OAC. Increased carvedilol to 6.25mg TID for HTn and PAT runs/PACs. Warfarin resumed, INR 1.2 subtherapeutic. Limited antiarrhythmic options given ESRD. I would refrain from AAD therapy unless persistent AF is seen.
[2019-09-07] MEDS: Cefepime 1 GM in Sodium Chloride 0.9% 100 ML IVPB SCH (15:16)
[2019-09-07] MEDS: Azithromycin 250 MG TAB PO SCH (15:16)
[2019-09-07] MEDS: Warfarin Sodium 5 MG TAB PO SCH (16:05)
--- NOTE | 2019-09-07 16:59 | PDOC.HOSPP ---
- Subjective Encounter Date: 09/07/19 Encounter Time: 16:50 Subjective: f/u for PNA, sepsis, A-flutter s/p ablation. Feels better overall and SOB improved. Ambulated with PT. - Objective Vital Signs & Weight: Vital Signs (12 hours) Temp Pulse Pulse Resp BP BP Pulse Ox 09/07/19 15:18 98.6 F 89 18 150/83 H 92 L 09/07/19 14:23 86 127/58 L 09/07/19 11:41 97.5 F L 94 18 136/66 92 L 09/07/19 07:08 99.2 F 88 18 146/67 H 95 Weight Weight 147 lb 4.8 oz I&O: 09/06/19 09/07/19 09/08/19 06:59 06:59 06:59 Intake Total 640 720 Output Total 300 2300 Balance 340 -1580 Result Diagrams: 09/07/19 04:24 09/07/19 04:24 Additional Labs: Microbiology 09/04/19 12:30 Sputum - Drainage Respiratory Culture - Final Laboratory Tests 09/04/19 09/05/19 09/06/19 16:11 05:34 04:17 Hgb 8.1 L 8.4 L 7.8 L INR 09/06/19 09/06/19 09/07/19 16:11 18:52 04:25 Hgb 8.7 L INR 1.1 1.2 EKG Reviewed by me: Yes (Tele - SR with PAC's) Hospitalist ROS - Medication Medications: Active Medications Generic Name Dose Route Start Last Admin Trade Name Freq PRN Reason Stop Dose Admin Amlodipine Besylate 10 mg 09/05/19 09:00 09/07/19 08:19 Norvasc PO 10 mg DAILY [facility] Administration Azithromycin 500 mg 09/04/19 15:00 09/07/19 15:16 Zithromax PO 500 mg Q24HR [facility] Administration Carvedilol 6.25 mg 09/07/19 15:00 09/07/19 15:17 Coreg PO 6.25 mg TID [facility] Administration Epoetin Carlos-epbx 7,500 unit 09/05/19 09:00 09/05/19 15:42 Retacrit SC 7,500 unit Q7DAYS [facility] Administration Ferrous Sulfate 325 mg 09/05/19 08:00 09/07/19 16:05 Feosol PO 325 mg BID-WM [facility] Administration Hydralazine HCl 10 mg 09/03/19 19:19 09/04/19 00:04 Apresoline SLOW IVP 10 mg Q4H PRN Administration SBP Greater Than 180 Hydralazine HCl 100 mg 09/03/19 21:00 09/07/19 15:16 Apresoline PO 100 mg TID [facility] Administration Cefepime HCl 1 gm/ Sodium 100 mls @ 200 mls/hr 09/04/19 15:00 09/07/19 15:16 Chloride IVPB 100 mls Q24HR [facility] Administration Vancomycin HCl 250 mg/ Sodium 100 mls @ 100 mls/hr 09/04/19 09:00 09/06/19 13 :00 Chloride IVPB 100 mls WILLCALL [facility] Administration Minoxidil 5 mg 09/04/19 21:00 09/06/19 21:40 Minoxidil PO 5 mg HS [facility] Administration Prednisone 40 mg 09/04/19 08:00 09/07/19 08:19 Prednisone PO 40 mg QAM-WM [facility] Administration Sevelamer Carbonate 800 mg 09/04/19 12:00 09/07/19 16:05 Renvela PO 800 mg TID-WM [facility] Administration Sodium Chloride 10 ml 09/03/19 21:00 09/07/19 08:20 Flush - Normal Saline IVF 10 ml Q12HR [facility] Administration Sodium Chloride 10 ml 09/03/19 20:05 09/06/19 16:06 Flush - Normal Saline IVF 10 ml PRN PRN Administration Saline Flush Warfarin Sodium 5 mg 09/07/19 17:00 09/07/19 16:05 Coumadin PO 5 mg 1700 [facility] Administration - Exam General Appearance: NAD, awake alert Eye: PERRL, anicteric sclera ENT: normocephalic atraumatic, no oropharyngeal lesions Neck: supple, symmetric, no JVD, no thyromegaly Heart: RRR, no gallops, no rubs, normal peripheral pulses Respiratory - other findings: diminished bilat bases Gastrointestinal: soft, non-tender, non-distended, normal bowel sounds, no palpable masses Extremities: no cyanosis, no clubbing, no edema Skin: normal turgor, no lesions Neurological: cranial nerve grossly intact, no new deficit Musculoskeletal: normal tone, generalized weakness Psychiatric: normal affect, A&O x 3 Hosp A/P (1) Pneumonia Code(s): J18.9 - PNEUMONIA, UNSPECIFIED ORGANISM Status: Acute Qualifiers: Pneumonia type: due to unspecified organism Laterality: bilateral Lung location: lower lobe of lung Qualified Code(s): J18.9 - Pneumonia, unspecified organism Plan: Resolving, continue Zithromax, d/c Cefepime (2) Sepsis Code(s): A41.9 - SEPSIS, UNSPECIFIED ORGANISM Status: Acute Qualifiers: Sepsis type: sepsis due to unspecified organism Severe sepsis shock status : without septic shock Plan: Resolved (3) ESRD (end stage renal disease) on dialysis Code(s): N18.6 - END STAGE RENAL DISEASE; Z99.2 - DEPENDENCE ON RENAL DIALYSIS Status: Chronic Plan: HD per Renal service (4) Atrial flutter Code(s): I48.92 - UNSPECIFIED ATRIAL FLUTTER Status: Chronic Qualifiers: Atrial flutter type: unspecified Qualified Code(s): I48.92 - Unspecified atrial flutter Plan: s/p CTI ablation, current SR, resuming Coumadin - Plan plan discussed w/ family, continue antibiotics, PT/OT, social media sr strategy manager, out of bed/ambulate, DVT proph w/SCDs Stable currently Continue Coumadin with goal INR 2-3 Continue Coreg TID OOB/ambulate Likely home in 24h AM lab: BMP, CBC, PT/INR
--- NOTE | 2019-09-07 17:48 | EKG ---
Test Reason : Blood Pressure : / mmHG Vent. Rate : 107 BPM Atrial Rate : 115 BPM P-R Int : 000 ms QRS Dur : 096 ms QT Int : 396 ms P-R-T Axes : 000 017 133 degrees QTc Int : 528 ms Atrial fibrillation with rapid ventricular response with premature ventricular or aberrantly conducte d complexes Voltage criteria for left ventricular hypertrophy Cannot rule out Septal infarct , age undetermined T wave abnormality, consider lateral ischemia Prolonged QT Abnormal ECG When compared with ECG of 29-AUG-2015 17:51, Atrial fibrillation has replaced Sinus rhythm Vent. rate has increased BY 47 BPM QT has shortened Confirmed by DR. Janett JOLLY ([id number]) on 09/07/2019 5:47:54 PM Referred By: JAVIER Confirmed By:DR. Janett JOLLY
[2019-09-07] MEDS: Minoxidil 2.5 MG TAB PO SCH (21:40)
[2019-09-08 04:40] LABS: #Lymphocytes 1.3 thou/uL (1.20-3.40); #Monocytes 0.7 thou/uL (0.11-0.59); #Neutrophils 10.8 thou/uL (1.40-6.50); %Eosinophils 0.3 % (0.0-10.0); %Lymphocytes 9.9 % (21.0-51.0); %Monocytes 5.6 % (0.0-10.0); %Neutrophils 84.3 % (42.0-75.0); Hemoglobin 8.6 g/dL (14.0-18.0); Mean Corpuscular HGB CONC 31.6 g/dL (32.0-36.0); Mean Corpuscular Hemoglobin 29.7 pg (27.0-31.0); Mean Corpuscular Volume 93.9 fL (78.0-98.0); Mean Platelet Volume 10.1 fL (7.4-10.4); Platelet Count 214 thou/uL (130-400); Red Blood Cell (RBC) Count 2.88 mill/uL (4.70-6.10); White Blood Cell (WBC) Count 12.8 thou/uL (4.8-10.8)
[2019-09-08 04:42] LABS: INR-International Normal Ratio 1.2; Prothrombin Time 15.1 SEC (12.0-14.7)
[2019-09-08 04:54] LABS: Anion Gap 23 mmol/L (10-20); BUN (Urea Nitrogen) 55 mg/dL (8.4-25.7); Calc. Creatinine Clearance 6 mL/min (70-130); Calcium 9.5 mg/dL (7.8-10.44); Carbon Dioxide 29 mmol/L (23-31); Chloride 95 mmol/L (98-107); Estimated GFR-MDRD 7; Glucose 89 mg/dL (83-110); Potassium 3.8 mmol/L (3.5-5.1); Sodium 143 mmol/L (136-145)
[2019-09-08 08:34] LABS: Vancomycin, Random 11.2 ug/mL (See Comment)
--- NOTE | 2019-09-08 09:08 | PRG ---
DATE OF SERVICE: 09/08/2019 SUBJECTIVE: Mr. Dowd is a 78-year-old black male, admitted for pneumonia. He was found also to be in atrial flutter and underwent a cardiac ablation therapy. We are following him up for management of his ESRD. He is currently undergoing hemodialysis at the present time. He is tolerating said treatment. Fluid removal is being removed as tolerated. OBJECTIVE: VITAL SIGNS: Blood pressure is 129/74, heart rate 90, respiratory rate 18, pulse ox 100%. GENERAL: Awake, alert, comfortable, not in overt distress. SKIN: Adequate turgor. HEENT: Slightly pale conjunctivae. Anicteric sclerae. NECK: No neck mass. No carotid bruits. No JVD. CHEST: No deformities. LUNGS: Clear breath sounds. HEART: Normal sinus rhythm. No murmur. No gallops. No rubs. ABDOMEN: Globular, soft, nontender. No masses. EXTREMITIES: No edema. No deformities. MEDICATIONS: Medications of September 08, 2019, were reviewed. LABORATORY DATA: Laboratories of September 08, 2019; white count 12.8, hemoglobin 8.6. Sodium 143, potassium 4.8, chloride 95, carbon dioxide 29, BUN 55, creatinine 8.82, glucose 89, calcium 9.5. INR 1.2. ASSESSMENT AND PLAN: 1. End-stage renal disease, stable, tolerating current hemodialysis regimen. Fluid removal as tolerated. 2. Atrial flutter-resolved. The patient is status post cardiac ablation. 3. Hypertension, much better control with addition of minoxidil. 4. Anemia. Currently, on weekly Epogen. Receiving 7500 units subcutaneous q.week and also on ferrous sulfate 325 mg p.o. b.i.d. Job ID: [id number]
[2019-09-08] MEDS ORDERED: Warfarin Sodium 5 MG TAB PO SCH (09:30)
--- NOTE | 2019-09-08 09:32 | PDOC.EP ---
- Subjective Date: 09/08/19 Time: 09:32 Interval History: follow up for atrial flutter after CTI flutter ablation. Feeling much better today. -palpitations. - chest pain, dizziness, passing out. NO bleeding or pain at groin sites. - Objective Allergies/Adverse Reactions: Allergies Allergy/AdvReac Type Severity Reaction Status Date / Time No Known Allergies Allergy Verified 01/18/15 21:45 Current Medications Acetaminophen (Tylenol) 650 mg PO Q6H PRN PRN Reason: Headache/Fever/Mild Pain (1-3) Acetaminophen/Codeine Phosphate (Tylenol/Codeine Elixir) 2.5 ml PO Q6H PRN PRN Reason: Cough Albuterol/Ipratropium (Duoneb) 3 ml NEB Q2OG-AG PRN PRN Reason: Dyspnea/Wheezing/SOB Amlodipine Besylate (Norvasc) 10 mg PO DAILY [facility] Last Admin: 09/07/19 08:19 Dose: 10 mg Azithromycin (Zithromax) 500 mg PO Q24HR [facility] Last Admin: 09/07/19 15:16 Dose: 500 mg Carvedilol (Coreg) 6.25 mg PO TID [facility] Last Admin: 09/07/19 21:41 Dose: 6.25 mg Epoetin Carlos-epbx (Retacrit) 7,500 unit SC Q7DAYS [facility] Last Admin: 09/05/19 15:42 Dose: 7,500 unit Ferrous Sulfate (Feosol) 325 mg PO BID-WM [facility] Last Admin: 09/07/19 16:05 Dose: 325 mg Hydralazine HCl (Apresoline) 10 mg SLOW IVP Q4H PRN PRN Reason: SBP Greater Than 180 Last Admin: 09/04/19 00:04 Dose: 10 mg Hydralazine HCl (Apresoline) 100 mg PO TID [facility] Last Admin: 09/07/19 21:40 Dose: 100 mg Vancomycin HCl 1 gm/ Device 200 mls @ 200 mls/hr IVPB WILLCALL [facility] Vancomycin HCl 750 mg/ Sodium (Chloride) 250 mls @ 250 mls/hr IVPB [facility]CALL [facility] Vancomycin HCl 500 mg/ Sodium (Chloride) 100 mls @ 100 mls/hr IVPB WILLCALL [facility] Vancomycin HCl 250 mg/ Sodium (Chloride) 100 mls @ 100 mls/hr IVPB WILLCALL [facility] Last Admin: 09/06/19 13:00 Dose: 100 mls Minoxidil (Minoxidil) 5 mg PO HS [facility] Last Admin: 09/07/19 21:40 Dose: 5 mg Miscellaneous Medication (Pharmacy To Dose) 1 each IVPB PRN PRN PRN Reason: Pharmacy to dose Miscellaneous Medication (Pharmacy To Dose) 1 each PO PRN PRN PRN Reason: Pharmacy to dose Hold Vancomycin For (Level >20) 0 each FS .AT DIALYSIS [facility] Ondansetron HCl (Zofran) 4 mg SLOW IVP Q6H PRN PRN Reason: Nausea/Vomiting Prednisone (Prednisone) 40 mg PO QAM-[facility] Last Admin: 09/07/19 08:19 Dose: 40 mg Sevelamer Carbonate (Renvela) 800 mg PO TID-[facility] Last Admin: 09/07/19 16:05 Dose: 800 mg Sodium Chloride (Flush - Normal Saline) 10 ml IVF Q12HR [facility] Last Admin: 09/07/19 22:57 Dose: Not Given Sodium Chloride (Flush - Normal Saline) 10 ml IVF PRN PRN PRN Reason: Saline Flush Last Admin: 09/06/19 16:06 Dose: 10 ml Warfarin Sodium (Coumadin) 5 mg PO 1700 [facility] Last Admin: 09/07/19 16:05 Dose: 5 mg Warfarin Sodium (Coumadin) 5 mg PO NOW [facility] Stop: 09/08/19 11:30 Vital Signs & Weight: Vital Signs Temp Pulse Resp BP BP Pulse Ox 09/08/19 07:09 90 18 129/74 100 09/08/19 03:31 98 F 85 14 133/55 L 90 L 09/07/19 21:41 150/64 H 09/07/19 21:40 82 Weight 147 lb 4.8 oz I/O: I/O 09/07/19 09/08/19 09/09/19 06:59 06:59 06:59 Intake Total 720 820 Output Total 2300 Balance -1580 820 - Quality Measures Condition: Atrial Fibrillation/Flutter (hx or current) CV meds: Warfarin: Yes - Physical Exam General: alert & oriented x3, appears well, no apparent distress, speech clear, affect appropriate HEENT: mucus membranes moist, normocephaly Neck: supple neck, midline trachea, no JVD/HJR, no lymphadenopathy Cardiology: regular rate and rhythm, no murmur, PMI nondisplaced Lungs: clear to auscultation, no wheeze, rales, rhonchi Neurology: cranial nerve 2-12 intact, grossly intact, no lateralizing findings Extremities: dry, strong pulses, warm Skin: groin sites stable - Labs Result Diagrams: 09/08/19 04:22 09/08/19 04:22 - EKG Interpretation EKG shows: Sinus rhythm (PACs, less than day before) - Assessment/Plan Assessment/Plan: 1. Typical atrial flutter -s/p ANTWAN then EPS with CTI ablation. normal AV node and SA node function. - SR with 1st degree AV block. No recurrent atrial arrhythmias thus far 2. ESRD 3. URI 4. HTN 5. Anticoagulation with warfarin - INR remains 1.2, per hospitalist team - if goes into AFib I recommend bridge therapy until INR therapeutic </=2.0 PACs are seen on tele but less than the day before. No atrial fibrillation is seen on tele or during EPS study but I would recommend continued OAC. Increased carvedilol to 6.25mg TID for HTN and PAT runs/PACs which have quieted. Warfarin resumed, INR 1.2 subtherapeutic. Limited antiarrhythmic options given ESRD. I would refrain from AAD therapy unless persistent AF is seen.
[2019-09-08] MEDS: Vancomycin HCl 500 MG in Sodium Chloride 0.9% 100 ML IVPB SCH (10:23)
[2019-09-08] MEDS: Sevelamer Carbonate 800 MG TAB PO SCH ×3 (11:25→16:45)
[2019-09-08] MEDS: hydrALAZINE 25 MG TAB PO SCH ×3 (11:45→20:10)
[2019-09-08] MEDS: predniSONE 20 MG TAB PO SCH (11:46)
[2019-09-08] MEDS: Amlodipine 10 MG TAB PO SCH (11:46)
[2019-09-08] MEDS: Carvedilol 6.25 MG TAB PO SCH ×3 (11:47→20:10)
[2019-09-08] MEDS: Ferrous Sulfate 325 MG TAB PO SCH ×2 (11:47→16:45)
[2019-09-08] MEDS: Azithromycin 250 MG TAB PO SCH (16:03)
[2019-09-08] MEDS: Warfarin Sodium 5 MG TAB PO SCH (16:04)
[2019-09-08 16:58] LABS: Hemoglobin 8.9 g/dL (14.0-18.0); Platelet Count 226 thou/uL (130-400)
--- NOTE | 2019-09-08 16:58 | PDOC.HOSPP ---
- Subjective Encounter Date: 09/08/19 Encounter Time: 16:45 Subjective: f/u for A-flutter s/p CTI ablation with current SR. Awaiting Coumadin to become therapeutic with current INR 1.2. No new complaints but not wanting to take his pm meds. - Objective Vital Signs & Weight: Vital Signs (12 hours) Temp Pulse Resp BP Pulse Ox 09/08/19 16:02 78 09/08/19 15:10 98.7 F 78 15 139/73 09/08/19 11:45 90 09/08/19 11:43 98.0 F 89 16 120/55 L 93 L 09/08/19 07:09 90 18 129/74 100 Weight Weight 147 lb 4.8 oz I&O: 09/07/19 09/08/19 09/09/19 06:59 06:59 06:59 Intake Total 720 820 Output Total 2300 Balance -1580 820 Result Diagrams: 09/08/19 04:22 09/08/19 04:22 Additional Labs: Microbiology 09/04/19 12:30 Sputum - Drainage Respiratory Culture - Final Laboratory Tests 09/04/19 09/05/19 09/06/19 16:11 05:34 04:17 Hgb 8.1 L 8.4 L 7.8 L PT INR 09/06/19 09/06/19 09/07/19 16:11 18:52 04:25 Hgb 8.7 L PT INR 1.1 1.2 09/08/19 04:22 Hgb PT 15.1 H INR 1.2 EKG Reviewed by me: Yes (Tele - SR ) Hospitalist ROS - Medication Medications: Active Medications Generic Name Dose Route Start Last Admin Trade Name Freq PRN Reason Stop Dose Admin Amlodipine Besylate 10 mg 09/05/19 09:00 09/08/19 11:46 Norvasc PO 10 mg DAILY [facility] Administration Azithromycin 500 mg 09/04/19 15:00 09/08/19 16:03 Zithromax PO 500 mg Q24HR [facility] Administration Carvedilol 6.25 mg 09/07/19 15:00 09/08/19 16:03 Coreg PO 6.25 mg TID [facility] Administration Epoetin Carlos-epbx 7,500 unit 09/05/19 09:00 01/13/20 15:42 Retacrit SC 7,500 unit Q7DAYS [facility] Administration Ferrous Sulfate 325 mg 09/05/19 08:00 09/08/19 16:45 Feosol PO Not Given BID-WM [facility] Hydralazine HCl 10 mg 09/03/19 19:19 09/04/19 00:04 Apresoline SLOW IVP 10 mg Q4H PRN Administration SBP Greater Than 180 Hydralazine HCl 100 mg 09/03/19 21:00 09/08/19 16:02 Apresoline PO 100 mg TID [facility] Administration Vancomycin HCl 500 mg/ Sodium 100 mls @ 100 mls/hr 09/04/19 09:00 09/08/19 10 :23 Chloride IVPB 100 mls WILLCALL [facility] Administration Vancomycin HCl 250 mg/ Sodium 100 mls @ 100 mls/hr 09/04/19 09:00 09/06/19 13 :00 Chloride IVPB 100 mls WILLCALL [facility] Administration Minoxidil 5 mg 09/04/19 21:00 09/07/19 21:40 Minoxidil PO 5 mg HS [facility] Administration Prednisone 40 mg 09/04/19 08:00 09/08/19 11:46 Prednisone PO 40 mg QAM-WM [facility] Administration Sevelamer Carbonate 800 mg 09/04/19 12:00 09/08/19 16:45 Renvela PO Not Given TID-WM [facility] Sodium Chloride 10 ml 09/03/19 21:00 09/08/19 11:48 Flush - Normal Saline IVF Not Given Q12HR [facility] Sodium Chloride 10 ml 09/03/19 20:05 09/06/19 16:06 Flush - Normal Saline IVF 10 ml PRN PRN Administration Saline Flush Warfarin Sodium 5 mg 09/07/19 17:00 09/08/19 16:04 Coumadin PO 5 mg 1700 [facility] Administration - Exam General Appearance: NAD, awake alert Eye: PERRL, anicteric sclera ENT: normocephalic atraumatic, no oropharyngeal lesions Neck: supple, symmetric, no JVD, no thyromegaly Heart: RRR, no gallops, no rubs, normal peripheral pulses Respiratory: CTAB, no wheezes, no rales, no ronchi, normal chest expansion Gastrointestinal: soft, non-tender, non-distended, normal bowel sounds Extremities: no cyanosis, no clubbing, no edema Skin: normal turgor, no lesions Neurological: cranial nerve grossly intact, no new deficit Musculoskeletal: normal tone, generalized weakness Psychiatric: oriented to person, oriented to place Hosp A/P (1) Pneumonia Code(s): J18.9 - PNEUMONIA, UNSPECIFIED ORGANISM Status: Acute Qualifiers: Pneumonia type: due to unspecified organism Laterality: bilateral Lung location: lower lobe of lung Qualified Code(s): J18.9 - Pneumonia, unspecified organism Plan: Continue Zithromax (2) Sepsis Code(s): A41.9 - SEPSIS, UNSPECIFIED ORGANISM Status: Acute Qualifiers: Sepsis type: sepsis due to unspecified organism Severe sepsis shock status : without septic shock Plan: Resolving, continue Zithromax as outlined in #1 (3) ESRD (end stage renal disease) on dialysis Code(s): N18.6 - END STAGE RENAL DISEASE; Z99.2 - DEPENDENCE ON RENAL DIALYSIS Status: Chronic Plan: HD per Renal service (4) Atrial flutter Code(s): I48.92 - UNSPECIFIED ATRIAL FLUTTER Status: Chronic Qualifiers: Atrial flutter type: unspecified Qualified Code(s): I48.92 - Unspecified atrial flutter Plan: s/p CTI with ablation, continue Coreg, current SR - Plan plan discussed w/ family, continue antibiotics, PT/OT, renal social worker, DVT proph w/SCDs Stable currently Continue Coumadin with goal INR 2-3 Continue Coreg TID OOB/ambulate Likely home in 24h AM lab: H/H, PT/INR
[2019-09-08] MEDS: Minoxidil 2.5 MG TAB PO SCH (20:10)
[2019-09-08] MEDS ORDERED: Melatonin 3 MG TAB PO SCH (21:15)
[2019-09-09 05:04] LABS: INR-International Normal Ratio 1.6; Prothrombin Time 18.6 SEC (12.0-14.7)
[2019-09-09] MEDS: predniSONE 20 MG TAB PO SCH (08:50)
[2019-09-09] MEDS: Ferrous Sulfate 325 MG TAB PO SCH ×2 (08:50→16:11)
[2019-09-09] MEDS: hydrALAZINE 25 MG TAB PO SCH ×3 (08:51→20:08)
[2019-09-09] MEDS: Amlodipine 10 MG TAB PO SCH (08:51)
[2019-09-09] MEDS: Carvedilol 6.25 MG TAB PO SCH ×3 (08:51→20:08)
--- NOTE | 2019-09-09 09:38 | PRG ---
DATE OF SERVICE: 09/09/2019 SERVICE: Renal Medicine. SUBJECTIVE: Mr. Dowd is an 79-year-old black male with ESRD, was admitted for pneumonia. He was treated with IV antibiotics. In addition, he developed atrial flutter. He underwent cardiac ablation. We are following up this patient for management of his ESRD. He did undergo hemodialysis yesterday and tolerated said treatment. This morning, he voices no new complaints. No chest pain or shortness of breath. OBJECTIVE: VITAL SIGNS: Blood pressure 154/81, heart rate 70, respiratory rate 16, temperature 97.8, pulse ox 95%. GENERAL: The patient is awake, alert, supine, comfortable, not in distress. SKIN: Adequate turgor. HEENT: He has a slightly pale conjunctivae. Anicteric sclerae. NECK: No neck mass. No carotid bruits. No JVD. CHEST: No deformities. LUNGS: Clear breath sounds. HEART: Normal sinus rhythm. No murmur. No gallops. No rubs. ABDOMEN: Globular, soft, nontender. No masses. EXTREMITIES: No edema. No deformities. MEDICATIONS: Medications of September 09, 2019, were reviewed. LABORATORY DATA: Laboratories of September 08, 2019; hemoglobin 8.9. Sodium 143, potassium 3.8, chloride 95, carbon dioxide 29, BUN 55, creatinine 8.82, glucose 89, calcium 9.5. ASSESSMENT AND PLAN: 1. Anemia. Continuing weekly Epogen. Continue iron supplementation. 2. Hypertension, much improved with addition of minoxidil. 3. Atrial flutter-resolved with cardiac ablation. 4. End-stage renal disease, stable. We will continue current Thursday, , and Thursday hemodialysis. 5. Agree with current management. Job ID: [id number]
--- NOTE | 2019-09-09 10:36 | PDOC.EP ---
- Subjective Date: 09/09/19 Time: 09:00 Interval History: follow up for atrial flutter after CTI flutter ablation. Feeling much better today. -palpitations, chest pain, dizziness, passing out. NO bleeding or pain at groin sites. - Objective Allergies/Adverse Reactions: Allergies Allergy/AdvReac Type Severity Reaction Status Date / Time No Known Allergies Allergy Verified 01/18/15 21:45 Current Medications Acetaminophen (Tylenol) 650 mg PO Q6H PRN PRN Reason: Headache/Fever/Mild Pain (1-3) Acetaminophen/Codeine Phosphate (Tylenol/Codeine Elixir) 2.5 ml PO Q6H PRN PRN Reason: Cough Albuterol/Ipratropium (Duoneb) 3 ml NEB [id number] PRN PRN Reason: Dyspnea/Wheezing/SOB Amlodipine Besylate (Norvasc) 10 mg PO DAILY [facility] Last Admin: 09/09/19 08:51 Dose: 10 mg Azithromycin (Zithromax) 500 mg PO Q24HR [facility] Last Admin: 09/08/19 16:03 Dose: 500 mg Carvedilol (Coreg) 6.25 mg PO TID [facility] Last Admin: 09/09/19 08:51 Dose: 6.25 mg Epoetin Carlos-epbx (Retacrit) 7,500 unit SC Q7DAYS [facility] Last Admin: 09/05/19 15:42 Dose: 7,500 unit Ferrous Sulfate (Feosol) 325 mg PO BID-WM [facility] Last Admin: 09/09/19 08:50 Dose: 325 mg Hydralazine HCl (Apresoline) 10 mg SLOW IVP Q4H PRN PRN Reason: SBP Greater Than 180 Last Admin: 09/04/19 00:04 Dose: 10 mg Hydralazine HCl (Apresoline) 100 mg PO TID [facility] Last Admin: 09/09/19 08:51 Dose: 100 mg Vancomycin HCl 1 gm/ Device 200 mls @ 200 mls/hr IVPB WILLCALL [facility] Vancomycin HCl 750 mg/ Sodium (Chloride) 250 mls @ 250 mls/hr IVPB WILLCALL [facility] Vancomycin HCl 500 mg/ Sodium (Chloride) 100 mls @ 100 mls/hr IVPB WILLCALL [facility] Last Admin: 09/08/19 10:23 Dose: 100 mls Vancomycin HCl 250 mg/ Sodium (Chloride) 100 mls @ 100 mls/hr IVPB WILLCALL [facility] Last Admin: 09/06/19 13:00 Dose: 100 mls Minoxidil (Minoxidil) 5 mg PO HS [facility] Last Admin: 09/08/19 20:10 Dose: 5 mg Miscellaneous Medication (Pharmacy To Dose) 1 each IVPB PRN PRN PRN Reason: Pharmacy to dose Miscellaneous Medication (Pharmacy To Dose) 1 each PO PRN PRN PRN Reason: Pharmacy to dose Hold Vancomycin For (Level >20) 0 each FS .AT DIALYSIS [facility] Ondansetron HCl (Zofran) 4 mg SLOW IVP Q6H PRN PRN Reason: Nausea/Vomiting Prednisone (Prednisone) 40 mg PO QAM[facility] Last Admin: 09/09/19 08:50 Dose: 40 mg Sevelamer Carbonate (Renvela) 800 mg PO TID[facility] Last Admin: 09/08/19 16:45 Dose: Not Given Sodium Chloride (Flush - Normal Saline) 10 ml IVF Q12HR [facility] Last Admin: 09/09/19 08:59 Dose: Not Given Sodium Chloride (Flush - Normal Saline) 10 ml IVF PRN PRN PRN Reason: Saline Flush Last Admin: 09/06/19 16:06 Dose: 10 ml Warfarin Sodium (Coumadin) 10 mg PO 1700 [facility] Vital Signs & Weight: Vital Signs Temp Pulse Resp BP Pulse Ox 09/09/19 05:05 87 154/81 H 09/09/19 04:30 97.8 F 70 16 95 Weight 147 lb 4.8 oz I/O: I/O 09/08/19 09/09/19 09/10/19 06:59 06:59 06:59 Intake Total 820 600 Output Total 1800 Balance 820 -1200 - Quality Measures Condition: Atrial Fibrillation/Flutter (hx or current) CV meds: Warfarin: Yes - Physical Exam General: alert & oriented x3, appears well, no apparent distress, speech clear, affect appropriate HEENT: mucus membranes moist, normocephaly Neck: supple neck, midline trachea, no JVD/HJR, no lymphadenopathy Cardiology: regular rate and rhythm, PMI nondisplaced Lungs: clear to auscultation, no wheeze, rales, rhonchi Neurology: cranial nerve 2-12 intact, grossly intact, no lateralizing findings Abdomen: unremarkable, soft, HJR negative Extremities: dry, strong pulses, warm Skin: groin sites stable - Labs Result Diagrams: 09/08/19 16:43 09/08/19 04:22 - EKG Interpretation EKG shows: Sinus rhythm - Assessment/Plan Assessment/Plan: 1. Typical atrial flutter -s/p ANTWAN then EPS with CTI ablation. normal AV node and SA node function. - SR with 1st degree AV block. No recurrent atrial arrhythmias thus far 2. ESRD 3. URI 4. HTN 5. Anticoagulation with warfarin - INR remains 1.6, per hospitalist team - if goes into AFib I recommend bridge therapy until INR therapeutic </=2.0 No atrial fibrillation is seen on tele or during EPS study but I would recommend continued OAC. PAT runs/PACs which have quieted. Warfarin resumed, INR 1.2 subtherapeutic. Limited antiarrhythmic options given ESRD. I would refrain from AAD therapy unless persistent AF is seen. Rhythm stable. EP signing off.
[2019-09-09] MEDS: Sevelamer Carbonate 800 MG TAB PO SCH ×3 (11:44→16:11)
--- NOTE | 2019-09-09 14:58 | PDOC.HOSPP ---
- Subjective Encounter Date: 09/09/19 Encounter Time: 09:55 Subjective: pt up in bed eating, no complains - Objective Vital Signs & Weight: Vital Signs (12 hours) Temp Pulse Resp BP BP Pulse Ox 09/09/19 11:45 98.1 F 67 13 122/61 93 L 09/09/19 07:50 97.9 F 75 18 179/72 H 96 09/09/19 05:05 87 154/81 H 09/09/19 04:30 97.8 F 70 16 95 Weight Weight 147 lb 4.8 oz I&O: 09/08/19 09/09/19 09/10/19 06:59 06:59 06:59 Intake Total 820 600 Output Total 1800 Balance 820 -1200 Result Diagrams: 09/08/19 16:43 09/08/19 04:22 Hospitalist ROS - Review of Systems Cardiovascular: denies: chest pain, palpitations, orthopnea, paroxysmal noc. dyspnea, edema, light headedness, other Gastrointestinal: denies: nausea, vomiting, abdominal pain, diarrhea, constipation, melena, hematochezia, other Genitourinary: denies: dysuria, frequency, incontinence, hematuria, retention, other - Medication Medications: Active Medications Generic Name Dose Route Start Last Admin Trade Name Freq PRN Reason Stop Dose Admin Amlodipine Besylate 10 mg 09/05/19 09:00 09/09/19 08:51 Norvasc PO 10 mg DAILY [facility] Administration Azithromycin 500 mg 09/04/19 15:00 09/08/19 16:03 Zithromax PO 500 mg Q24HR [facility] Administration Carvedilol 6.25 mg 09/07/19 15:00 09/09/19 08:51 Coreg PO 6.25 mg TID [facility] Administration Epoetin Carlos-epbx 7,500 unit 09/05/19 09:00 09/05/19 15:42 Retacrit SC 7,500 unit Q7DAYS [facility] Administration Ferrous Sulfate 325 mg 09/05/19 08:00 09/09/19 08:50 Feosol PO 325 mg BID-WM [facility] Administration Hydralazine HCl 10 mg 09/03/19 19:19 09/04/19 00:04 Apresoline SLOW IVP 10 mg Q4H PRN Administration SBP Greater Than 180 Hydralazine HCl 100 mg 09/03/19 21:00 09/09/19 08:51 Apresoline PO 100 mg TID [facility] Administration Vancomycin HCl 500 mg/ Sodium 100 mls @ 100 mls/hr 09/04/19 09:00 09/08/19 10 :23 Chloride IVPB 100 mls WILLCALL [facility] Administration Vancomycin HCl 250 mg/ Sodium 100 mls @ 100 mls/hr 09/04/19 09:00 09/06/19 13 :00 Chloride IVPB 100 mls WILLCALL [facility] Administration Minoxidil 5 mg 09/04/19 21:00 09/08/19 20:10 Minoxidil PO 5 mg HS [facility] Administration Prednisone 40 mg 09/04/19 08:00 09/09/19 08:50 Prednisone PO 40 mg QAM-WM [facility] Administration Sevelamer Carbonate 800 mg 09/04/19 12:00 09/09/19 12:24 Renvela PO 800 mg TID-WM [facility] Administration Sodium Chloride 10 ml 09/03/19 21:00 09/09/19 08:59 Flush - Normal Saline IVF Not Given Q12HR [facility] Sodium Chloride 10 ml 09/03/19 20:05 09/06/19 16:06 Flush - Normal Saline IVF 10 ml PRN PRN Administration Saline Flush - Exam Neck: negative: supple, symmetric, no JVD, no thyromegaly, no lymphadenopathy, no carotid bruit, JVD Heart: negative: RRR, no murmur, no gallops, no rubs, normal peripheral pulses, irregular, diminshed peripheral pulses, murmur present, II/IV, III/IV Respiratory: negative: CTAB, no wheezes, no rales, no ronchi, normal chest expansion, no tachypnea, normal percussion, rales, rhonchi, tachypneic, wheezes Gastrointestinal: negative: soft, non-tender, non-distended, normal bowel sounds , no palpable masses, no hepatomegaly, no splenomegaly, no bruit, no guarding, no rigidity, tender to palpation, distended, diminished bowl sounds, voluntary guarding Hosp A/P (1) Pneumonia Code(s): J18.9 - PNEUMONIA, UNSPECIFIED ORGANISM Status: Acute Qualifiers: Pneumonia type: due to unspecified organism Laterality: bilateral Lung location: lower lobe of lung Qualified Code(s): J18.9 - Pneumonia, unspecified organism (2) Anemia Code(s): D64.9 - ANEMIA, UNSPECIFIED Status: Chronic Qualifiers: Anemia type: due to chronic kidney disease (3) Atrial flutter Code(s): I48.92 - UNSPECIFIED ATRIAL FLUTTER Status: Chronic Qualifiers: Atrial flutter type: unspecified Qualified Code(s): I48.92 - Unspecified atrial flutter (4) ESRD (end stage renal disease) on dialysis Code(s): N18.6 - END STAGE RENAL DISEASE; Z99.2 - DEPENDENCE ON RENAL DIALYSIS Status: Chronic (5) Encephalopathy acute Code(s): G93.40 - ENCEPHALOPATHY, UNSPECIFIED Status: Acute - Plan pt's inr was 1.6 hopefully trish he will be normal. Nursing staff spoke with pt's daughter who has an appointment with his primary on Thursday. abx per renal dosing.
[2019-09-09] MEDS: Azithromycin 250 MG TAB PO SCH (16:10)
[2019-09-09] MEDS ORDERED: Warfarin Sodium 10 MG TAB PO SCH (17:00)
[2019-09-09] MEDS: Minoxidil 2.5 MG TAB PO SCH (20:08)
[2019-09-10 05:13] LABS: INR-International Normal Ratio 2.4; Prothrombin Time 25.8 SEC (12.0-14.7)
[2019-09-10 07:59] VITALS: TEMP 98
[2019-09-10 08:51] LABS: Vancomycin, Random 13.3 ug/mL (See Comment)
--- NOTE | 2019-09-10 09:53 | EKG ---
Test Reason : Blood Pressure : / mmHG Vent. Rate : 123 BPM Atrial Rate : 123 BPM P-R Int : 000 ms QRS Dur : 092 ms QT Int : 374 ms P-R-T Axes : 000 050 -84 degrees QTc Int : 535 ms Sinus tachycardia Voltage criteria for left ventricular hypertrophy Cannot rule out Septal infarct , age undetermined Abnormal ECG Confirmed by CAMILO SHEPPARD D.O. ([id number]), scientific publications editor LIBRA MORA ([id number]) on 09/10/2019 9:53:24 AM Referred By: Confirmed By:CAMILO SHEPPARD D.O.
[2019-09-10 10:16] LABS: #Lymphocytes 2.2 thou/uL (1.20-3.40); #Monocytes 0.9 thou/uL (0.11-0.59); %Basophils 0.2 % (0.0-1.0); %Eosinophils 0.3 % (0.0-10.0); %Lymphocytes 14.3 % (21.0-51.0); %Neutrophils 79.3 % (42.0-75.0); Hemoglobin 8.8 g/dL (14.0-18.0); Mean Corpuscular HGB CONC 32.5 g/dL (32.0-36.0); Mean Corpuscular Hemoglobin 29.3 pg (27.0-31.0); Mean Platelet Volume 9.8 fL (7.4-10.4); Platelet Count 268 thou/uL (130-400); Red Blood Cell (RBC) Count 2.99 mill/uL (4.70-6.10); White Blood Cell (WBC) Count 16.2 thou/uL (4.8-10.8)
--- NOTE | 2019-09-10 10:51 | PRG ---
DATE OF SERVICE: 09/10/2019 SUBJECTIVE: Mr. Dowd is an 79-year-old black male with ESRD, was initially admitted for pneumonia. During this hospitalization, he developed atrial flutter and underwent cardiac ablation. He is doing well. No new complaints today. He is undergoing dialysis. No chest pain or shortness of breath. OBJECTIVE: VITAL SIGNS: Blood pressure 151/70, heart rate 66, respiratory rate 16, temperature 98, pulse ox 97% on room air. GENERAL: Awake, alert, comfortable, not in distress. SKIN: Adequate turgor. HEENT: He has slightly pale conjunctivae. Anicteric sclerae. NECK: No neck mass. No carotid bruits. No JVD. CHEST: No deformities. LUNGS: Decreased breath sounds. HEART: Normal sinus rhythm. No murmur. No gallops. No rubs. ABDOMEN: Globular, soft, nontender, no masses. EXTREMITIES: No edema. No deformities. MEDICATIONS: Medications of September 10, 2019, were reviewed. LABORATORY DATA: Laboratories of September 08, 2019, sodium 143, potassium 3.8, chloride 95, carbon dioxide 29, BUN 55, creatinine 8.82, glucose 89, calcium 9.5. ASSESSMENT AND PLAN: 1. End-stage renal disease, stable, undergoing hemodialysis. Fluid removal only as tolerated by the patient. 2. Anemia, continuing weekly Epogen. 3. Atrial flutter, resolved with cardiac ablation. 4. Pneumonia, currently on p.o. antibiotics. Continue supportive care. Job ID: [id number]
[2019-09-10 11:40] LABS: Anion Gap 16 mmol/L (10-20); BUN (Urea Nitrogen) 26 mg/dL (8.4-25.7); Calc. Creatinine Clearance 13 mL/min (70-130); Calcium 9.3 mg/dL (7.8-10.44); Carbon Dioxide 29 mmol/L (23-31); Chloride 98 mmol/L (98-107); Estimated GFR-MDRD 16; Glucose 90 mg/dL (83-110); Potassium 3.5 mmol/L (3.5-5.1); Sodium 139 mmol/L (136-145)
[2019-09-10] MEDS: Vancomycin HCl 500 MG in Sodium Chloride 0.9% 100 ML IVPB SCH (12:08)
[2019-09-10] MEDS: Ferrous Sulfate 325 MG TAB PO SCH (14:52)
[2019-09-10] MEDS: hydrALAZINE 25 MG TAB PO SCH (14:53)
[2019-09-10] MEDS: Amlodipine 10 MG TAB PO SCH (14:53)
[2019-09-10] MEDS: Carvedilol 6.25 MG TAB PO SCH (14:53)
[2019-09-10] MEDS: predniSONE 20 MG TAB PO SCH (14:53)
[2019-09-10 14:57] VITALS: BP 150/64
[2019-09-10] MEDS: Sevelamer Carbonate 800 MG TAB PO SCH (15:03)
--- NOTE | 2019-09-13 09:29 | EKG ---
Test Reason : ROUTINE Blood Pressure : / mmHG Vent. Rate : 089 BPM Atrial Rate : 089 BPM P-R Int : 214 ms QRS Dur : 090 ms QT Int : 416 ms P-R-T Axes : 046 019 110 degrees QTc Int : 506 ms Sinus rhythm with marked sinus arrhythmia with 1st degree A-V block Voltage criteria for left ventricular hypertrophy Anterior infarct (cited on or before 03-SEP-2019) T wave abnormality, consider lateral ischemia Prolonged QT Abnormal ECG When compared with ECG of 04-SEP-2019 15:10, (Unconfirmed) Sinus rhythm has replaced Atrial fibrillation Serial changes of Anterior infarct Present Confirmed by VICENTA ARIAS ([id number]) on 09/13/2019 9:28:48 AM Referred By: AURA Confirmed By:VICENTA ARIAS
--- NOTE | 2019-09-13 15:08 | DIS ---
DATE OF ADMISSION: 09/03/2019 DATE OF DISCHARGE: 09/10/2019 DISCHARGE DIAGNOSES: As of the following; 1. Pneumonia. 2. Atrial flutter. 3. End-stage renal disease, on dialysis. 4. Acute metabolic encephalopathy. 5. Sepsis. 6. Hypertension. HOSPITAL COURSE: The patient is an 79-year-old male, who initially presented to the hospital on 09/03. Please refer to the H and P for further details. The patient presents with a history of end-stage renal disease, on dialysis, who presents to the hospital with coughing and weakness x4 days. The patient initially was admitted into the hospital for possible pneumonia and also met the sepsis criteria. At this time, he was started on broad-spectrum antibiotics and also Nephrology was consulted. The patient appears also very dehydrated. While in the hospital, he went into atrial fibrillation, RVR. At this time, Cardiology was consulted and also an Electrophysiology. He had an echocardiogram done, which indicated an EF of 50% to 55% with elevated right ventricular systolic pressure, moderate to severe tricuspid regurgitation, and moderately dilated right atrium and left atrium. The patient underwent a radiofrequency ablation. Prior to that, a ANTWAN was done, which did not show any intracardiac clots. The patient was also put on Coumadin. His level was therapeutic. I did speak with the transplant case manager on Thursday in regard to who will be managing the patient's Coumadin. The patient's daughter did make an appointment at 2:45 on Thursday. However, he has not really seen his PCP for over a year. I initially recommended the patient to stay over the weekend, so that way his INR will be managed appropriately. His INR jumped from 1.6 to 2.4 on 10 mg. At this time, recommended to stay another day. However, the family refused and wanted to take the patient home, so I discharged the patient home. The patient will follow up with his primary care on Thursday, and at this time, also an INR will be checked. The patient also will continue antibiotics for a total of 10 days. He still also has a little bit of leukocytosis. We will continue to monitor, and he also will follow up with Electrophysiology. HOME MEDICATIONS: As of the following; 1. Norvasc 10 mg daily. 2. Azithromycin 500 mg daily. 3. Carvedilol 6.25 t.i.d. 4. Iron 325 b.i.d. 5. Minoxidil 5 mg daily. 6. Renvela 800 mg t.i.d. 7. Warfarin 7.5 daily. 8. Hydralazine 100 mg t.i.d. 9. Vitamin capsule one p.o. daily. PHYSICAL EXAMINATION: VITAL SIGNS: Temperature 98.0, pulse 66, respirations 16, oxygen saturations 97% on room, blood pressure 151/70. GENERAL: He is awake, alert, oriented x3. Does not appear in any distress. CVS: S1 and S2 present. No murmurs, rubs, or gallops. LUNGS: Clear to auscultation. No rhonchi or wheezes noted. ABDOMEN soft, nontender. Bowel sounds are present x2. I did speak with the patient's POA and recommended the patient to stay over the weekend, however, she was very adamant to take the patient home, and therefore, the patient was discharged. Job ID: [id number]
== END 2019-09-10 15:17 | disposition home or self-care (01) | DRG 853 ==
LOC: ERS 16:38 → 2NO 20:34
PROVIDERS: ADMIT Family Medicine; ATTEND Family Medicine
PROC: 02583ZZ Destruction of Conduction Mechanism, Percutaneous Approach (ICD-10-PCS; principal; 2019-09-03)
PROC: 02K83ZZ Map Conduction Mechanism, Percutaneous Approach (ICD-10-PCS; 2019-09-03)
PROC: B24BZZ4 Ultrasonography of Heart with Aorta, Transesophageal (ICD-10-PCS; 2019-09-03)
PROC: 4A0234Z Measurement of Cardiac Electrical Activity, Percutaneous Approach (ICD-10-PCS; 2019-09-03)
PROC: 4A023FZ Measurement of Cardiac Rhythm, Percutaneous Approach (ICD-10-PCS; 2019-09-03)
PROC: 5A1D70Z Performance of Urinary Filtration, Intermittent, Less than 6 Hours Per Day (ICD-10-PCS; 2019-09-05)
DX: A41.9 Sepsis, unspecified organism (principal); N18.6 End stage renal disease; J18.9 Pneumonia, unspecified organism; I21.A1 Myocardial infarction type 2; I50.32 Chronic diastolic (congestive) heart failure; I13.2 Hypertensive heart and chronic kidney disease with heart failure and with stage 5 chronic kidney disease, or end stage renal disease; I48.3 Typical atrial flutter; G93.40 Encephalopathy, unspecified; E78.5 Hyperlipidemia, unspecified; M10.9 Gout, unspecified; F17.210 Nicotine dependence, cigarettes, uncomplicated; K27.9 Peptic ulcer, site unspecified, unspecified as acute or chronic, without hemorrhage or perforation; R65.20 Severe sepsis without septic shock; J06.9 Acute upper respiratory infection, unspecified; D63.1 Anemia in chronic kidney disease; E83.39 Other disorders of phosphorus metabolism; I44.0 Atrioventricular block, first degree; E87.6 Hypokalemia; Z91.19 Patient's noncompliance with other medical treatment and regimen; Z99.2 Dependence on renal dialysis; Z79.899 Other long term (current) drug therapy
CPT/HCPCS: 36415; 71045; 76942; 80048; 80053; 80202; 82553; 83605; 83735; 84100; 84484; 85014; 85018; 85025; 85049; 85610; 85730; 87070; 87205; 87449; 87899; 90935; 93005; 93010; 93306; 93312; 93613; 93623; 93653; 94640; 96374; C1732; C1769; G0257; J0360; J0692; J1265; J1644; J1885; J2001; J2405; J2704; J2930; J3010; J3370; J3490; J7512; J7620; Q5105